=== PATIENT | female | born 1965 | race Caucasian/White ===

== ENCOUNTER 2020-01-24 10:24 | Outpatient (CLI) | payer OTHER, SELFPAY ==
[2020-01-24 10:37] LABS: Basophils Percent Auto 0.3 % (0.2-1.2); Eosinophils Absolute Auto 0.1 K/mm3 (0-0.3); Eosinophils Percent Auto 1.6 % (0-4.4); Hematocrit 36.8 % (37.0-47.0); Hemoglobin 12.1 g/dL (12.0-15.0); Immature Granulocyte Absolute 0.01 K/mm3 (0.00-0.031); Immature Granulocyte Percent A 0.1 % (0-0.5); Lymphocytes Absolute Auto 1.65 K/mm3 (0.9-3.2); Lymphocytes Percent Auto 24.2 % (18.3-44.2); Mean Corpuscular HGB Conc 32.9 g/dl (32-36); Mean Corpuscular Hemoglobin 29.5 pg (26-34); Mean Corpuscular Volume 89.8 fl (80-100); Mean Platelet Volume 9.5 fl (7.4-10.4); Monocytes Absolute Auto 0.4 K/mm3 (0.1-0.6); Monocytes Percent Auto 6.3 % (2.6-8.5); Neutrophils Absolute Auto 4.6 K/mm3 (1.3-6.7); Neutrophils Percent Auto 67.5 % (45.5-73.1); Platelet Count Result 213 k/mm3 (150-375); Red Cell Distribution Width 12.5 % (11.5-14.5); White Blood Count 6.8 K/mm3 (4.5-10.0)
[2020-01-24 10:48] LABS: Blood Urea Nitrogen 19 mg/dL (8-26); Carbon Dioxide 24 mmol/L (22-30); Chloride 105 mmol/L (98-109); Estimated Glomerular Filt Rate > 60; Glucose 109 mg/dL (70-105); Potassium 3.8 mmol/L (3.5-4.9); Sodium 139 mmol/L (138-146)
[2020-01-24 12:27] LABS: Alanine Aminotransferase 26 U/L (4-35); Albumin Level 4.2 g/dL (3.5-5.1); Alkaline Phosphatase 73 U/L (38-126); Aspartate Amino Transferase 26 U/L (14-36); Bilirubin,Total 0.3 mg/dL (0.2-1.3); Blood Urea Nitrogen 19 mg/dL (7-17); Calcium 9.2 mg/dL (8.4-10.2); Carbon Dioxide 25 mmol/L (22-30); Chloride 105 mmol/L (98-107); Estimated Glomerular Filt Rate > 60; Glucose 104 mg/dL (65-105); Sodium 137 mmol/L (137-145)
[2020-01-26 20:45] LABS: CA 27.29 20 U/mL (<38)
== END 2020-01-24 10:25 | disposition home or self-care (01) ==
LOC: ANHLAB 10:25
PROVIDERS: PCP Family Medicine; Visit Provider Internal Medicine Hematology & Oncology
DX: C50.411 Malignant neoplasm of upper-outer quadrant of right female breast (principal); Z17.0 Estrogen receptor positive status [ER+]
CPT/HCPCS: 36415; 80048; 80053; 85025; 86300

== ENCOUNTER 2020-04-09 13:37 | Outpatient (CLI) | payer OTHER, SELFPAY ==
--- NOTE | 2020-04-09 13:39 | ECG_ITS ---
Measurements Intervals [place] Rate: 65 P: 83 [place]: 190 QRS: 35 QRSD: 109 T: 28 QT: 425 QTc: 444 Interpretive Statements SINUS RHYTHM BORDERLINE R WAVE PROGRESSION, ANTERIOR LEADS BORDERLINE ECG Electronically Signed On 04-09-2020 17:16:25 CDT by Jam Merino D.O.
[2020-04-09 14:08] LABS: Hematocrit 38.1 % (37.0-47.0); Hemoglobin 12.5 g/dL (12.0-15.0)
== END 2020-04-09 13:38 | disposition home or self-care (01) ==
PROVIDERS: Anesthesiology; PCP Family Medicine; Visit Provider Urology
DX: D64.9 Anemia, unspecified (principal); I10 Essential (primary) hypertension; N39.3 Stress incontinence (female) (male)
CPT/HCPCS: 36415; 85014; 85018; 87086; 93005

== ENCOUNTER 2020-05-24 08:19 | Outpatient (CLI) | payer OTHER, SELFPAY | END 2020-05-24 08:20 | disposition home or self-care (01) | LOC: ANHSURGERY 08:20 | PROVIDERS: PCP Family Medicine; Visit Provider Urology | DX: N39.3 Stress incontinence (female) (male) (principal) | CPT/HCPCS: 87086; 87088 ==

== ENCOUNTER 2020-05-30 03:00 | Outpatient (CLI) | payer OTHER, SELFPAY ==
[2020-05-30 18:40] LABS: SARS-CoV-2 RNA PCR Negative
== END 2020-05-30 03:01 | disposition home or self-care (01) ==
LOC: ANHCOVIDDT 03:01
PROVIDERS: PCP Family Medicine; Visit Provider Urology
DX: Z01.812 Encounter for preprocedural laboratory examination (principal); Z20.828 Contact with and (suspected) exposure to other viral communicable diseases
CPT/HCPCS: 87635; C9803; U0003

== ENCOUNTER 2020-06-01 00:39 | Day surgery (SDC) | payer OTHER, SELFPAY ==
[2020-04-09 08:24] VITALS: BMI 39.9
[2020-05-21 11:02] VITALS: BMI 39.9
--- NOTE | 2020-05-27 10:57 | PM.IMHP ---
H&P: HPI History of Present Illness Date/Time: 05/27/20 10:57 Chief complaint: Stress Incontinence Narrative: Mari Lee is a 55 year old female with stress urinary incontinence. She underwent a previous transobturator sling in the summer of 2018. She has recurrent stress incontinence. Review of Systems Review of Systems: All systems reviewed & are unremarkable except as noted in HPI and below PMFSH Past Medical History Medical History (Updated 05/27/20 @ 10:58 by Oskar Pereira MD) BMI 40.0-44.9, adult BP (high blood pressure) Breast cancer, right Stress incontinence Surgical History Surgical History (Updated 08/08/19 @ 11:59 by Jaye Mccloud MD) H/O bladder repair surgery H/O lumpectomy S/P hysterectomy with oophorectomy S/P radiation > 12 weeks Family History Family History (Updated 09/13/15 @ 15:15 by DOCTOR UNKNOWN) Mother Hypertension Family history of pancreatic cancer Patient's mother is Father Hypertension Social History Social History (Updated 10/24/19 @ 15:44 by Katie West) Social History: Years smoked: 35 Smoking status: Current every day smoker Tobacco type: cigarettes Second hand tobacco smoke exposure: Yes Smoking end date: 09/07/14 Additional smoking assessment comments: 20 YEARS AGO SMOKED 3-4 PACKS PER WEEK, NOW ONLY 1 CIGARETTE PER DAY Alcohol intake: current Drinks per week: 4 Substance use: never Substance use type: does not use Gender identity (if verbalized by the patient): Female Spiritual care concerns: No Meds Home Medications and Allergies Home Medications Medication Instructions Recorded Confirmed Type loratadine 10 mg tablet 10 mg PO DAILY 08/08/19 05/21/20 History neyzd-5u-uje-epa-fish oil 120 1 cap PO DAILY 08/08/19 05/21/20 History mg-180 mg-60 mg-1,200 mg capsuleDR ranitidine HCl 75 mg tablet 75 mg PO EVERY OTHER DAY 08/08/19 05/21/20 History tizanidine 2 mg capsule 2 mg PO TID PRN 08/08/19 05/21/20 History atenolol 50 mg tablet 50 mg PO DAILY #90 tablet 11/23/19 05/21/20 Rx anastrozole 1 mg PO DAILY 04/09/20 05/21/20 History ferrous sulfate [iron] 325 mg PO DAILY 04/09/20 05/21/20 History glycopyrrolate-formoterol [Bevespi 2 puff INHALATION BID PRN 04/09/20 05/21/20 History Aerosphere] multivitamin 1 tablet PO DAILY 04/09/20 05/21/20 History montelukast 10 mg tablet 10 mg PO DAILY #30 tablet 05/21/20 Rx Allergies Allergy/AdvReac Type Severity Reaction Status Date / Time levofloxacin Allergy Unknown hives Verified 05/21/20 11:03 Exam Const: General: no acute distress HENMT: Mouth: Yes moist mucous membranes Eyes: General: appearance normal, both eyes and all related structures Neck: Neck: supple Resp: Effort & Inspection: normal respiratory effort GI: GI Palp: Yes Soft to palpation Skin: General skin exam: normal color Neuro: Cognition (Neuro): normal cognition Extrem: General: normal to inspection Psych: Mental Status: mental status grossly normal Assessment and Plan Assessment and plan (1) RICK (stress urinary incontinence, female): Code(s): N39.3 - Stress incontinence (female) (male) Status: Acute Assessment and Plan: repeat mid urethral sling. Will likely do a retropubic approach. We discussed risks, benefits, alternatives. Discussed potentially lower success rate.
[2020-06-01] VITALS (7 sets, daily range): BP systolic 112–135; BP diastolic 73–82; PULSE 68–83; RESP 10–16; TEMP 36.1–36.4; O2SAT 95–100
--- NOTE | 2020-06-01 07:18 | WPDHPUPDATE1 ---
History and Physical Update Update Date/Time: 06/01/20 07:18 History and Physical has been reviewed, including an updated exam of the patient. There are NO changes in the patient's condition. Risks, benefits, and alternatives have been discussed and questions answered. Patient agrees to proceed with procedure.
[2020-06-01] MEDS: LACTATED RINGERS 1,000 ML 30 ML IV CONT ×2 (08:05→10:55)
--- NOTE | 2020-06-01 08:22 | WPDANESEPPF ---
Anes - Initial Pre Proc Eval Procedure: Operation Date: 06/01/20 09:45 Proposed Procedures p Urethral Sling - Oskar Pereira MD Date/Time: 06/01/20 08:22 Surgeon: Oskar Pereira MD Pre Op Diagnosis: Stress Incontinence Patient Data Age: 55 Gender: F Height: 5 ft 5 in Weight: 109.4 kg Allergies Allergy/AdvReac Type Severity Reaction Status Date / Time levofloxacin Allergy Unknown hives Verified 06/01/20 07:58 Home Medications Medication Instructions Recorded Confirmed Type loratadine 10 mg tablet 10 mg PO DAILY 08/08/19 06/01/20 History xopat-6s-pio-epa-fish oil 120 1 cap PO DAILY 08/08/19 06/01/20 History mg-180 mg-60 mg-1,200 mg capsule, DR ranitidine HCl 75 mg tablet 75 mg PO EVERY OTHER DAY 08/08/19 06/01/20 History tizanidine 2 mg capsule 2 mg PO TID PRN 08/08/19 06/01/20 History atenolol 50 mg tablet 50 mg PO DAILY #90 tablet 11/23/19 06/01/20 Rx anastrozole 1 mg PO DAILY 04/09/20 06/01/20 History ferrous sulfate [iron] 325 mg PO DAILY 04/09/20 06/01/20 History glycopyrrolate-formoterol [Bevespi 2 puff INHALATION BID PRN 04/09/20 06/01/20 History Aerosphere] multivitamin 1 tablet PO DAILY 04/09/20 06/01/20 History montelukast 10 mg tablet 10 mg PO DAILY #30 tablet 05/21/20 06/01/20 Rx Patient hx anesthesia problems: none Family hx anesthesia problems: none PMFSH Past Medical History Medical History BMI 40.0-44.9, adult BP (high blood pressure) Breast cancer, right Stress incontinence Surgical History Surgical History H/O bladder repair surgery H/O lumpectomy S/P hysterectomy with oophorectomy S/P radiation > 12 weeks Family History Family History Mother Hypertension Family history of pancreatic cancer Patient's mother is Father Hypertension Social History Social History Social History: Years smoked: 35 Smoking status: Current every day smoker Tobacco type: cigarettes Second hand tobacco smoke exposure: Yes Smoking end date: 09/07/14 Additional smoking assessment comments: 20 YEARS AGO SMOKED 3-4 PACKS PER WEEK, NOW ONLY 1 CIGARETTE PER DAY Alcohol intake: current Drinks per week: 4 Substance use: never Substance use type: does not use Gender identity (if verbalized by the patient): Female Spiritual care concerns: No Anes - Eval Final PreProcedure Day of Procedure 06/01/20 08:22 Patient weight: morbidly obese Heart: regular rate and rhythm Lungs: clear to auscultation Airway: Mallampati scale class II Neurological: alert and oriented Last oral intake: >/= 8 hours ASA classification: III Emergent: no Anesthetic plan: proceed Anesthesia type and monitoring: general GIVS and standard monitoring Informed Consent: The patient's anesthetic plan and its attendant risks and benefits were discussed with the patient/family/POA. Questions were solicited and answers provided to the satisfaction of the patient/family/POA.
[2020-06-01] MEDS: ceFAZolin 2 GM/D5W 50 ML 2 GM/50 ML BAG IVPB (09:17)
[2020-06-01] MEDS: BUPIVACAINE/EPINEPHRINE 0.25% 50 ML VIAL INFILTRATE (09:32)
--- NOTE | 2020-06-01 09:58 | PM.PROC ---
Procedure Note - Detailed Date of procedure: 06/01/20 Pre-op diagnosis: Stress Incontinence Stress urinary incontinence Post-op diagnosis: same Procedure performed: Transobturator Mid-urethral sling Cystoscopy Description of procedure: This is a patient with confirmed stress urinary incontinence. She desires correction. She understands the risks of bleeding, infection, damage to the urinary tract, lack of cure of stress incontinence, recurrence of stress incontinence, postoperative voiding dysfunction including incontinence and retention, need for ancillary procedures to loosen remove the sling, postoperative voiding dysfunction including retention and overactive bladder, hip and leg pain, dyspareunia, mesh related complications including exposure and extrusion. She agrees to proceed. She understands it will not help overactive bladder symptoms if present. She was correctly identified and informed consent obtained. She is brought to the operating room. She was given appropriate anesthesia. She was placed in the dorsal lithotomy position. All pressure points were padded. She was given appropriate perioperative antibiotics and a time-out performed. A Servin catheter is placed. I marked out the thigh incisions anesthetize the skin and made those incisions. I anesthetized the anterior vaginal wall over the mid urethra. I made a 1 cm incision. I dissected out laterally taking great care not to injure the urethra or the vaginal wall. Passed the helical trocars 1st on the left and then on the right from the thigh incision towards the vaginal incision. Sling was connected to the trocars and brought out through the thigh incision. I tensioned the sling appropriately. I cut and removed the plastic sheaths. I closed the incision with 2 0 Vicryl. I then performed cystoscopy. There was no surgical artifact or abnormalities inside the bladder. The urethra was normal without surgical artifact. I cut the excess sling material. I closed the incisions with glue. She was awakened and transferred to the PACU in stable condition. Implants: Mid urethral sling Surgeon: Oskar Pereira MD Drains: No Packing: No Pathology: none sent Complications: No immediate complications Condition: stable Disposition: PACU
[2020-06-01] MEDS: oxyCODONE HCL (*CRX) 5 MG TAB IR PO (11:16)
== END 2020-06-01 11:27 | disposition home or self-care (01) ==
PROVIDERS: PCP Family Medicine; Visit Provider Urology
PROC: (CPT 57288; principal; 2020-06-01 09:45)
DX: N39.3 Stress incontinence (female) (male) (principal); I10 Essential (primary) hypertension; Z85.3 Personal history of malignant neoplasm of breast; Z92.3 Personal history of irradiation; F17.210 Nicotine dependence, cigarettes, uncomplicated; Z79.811 Long term (current) use of aromatase inhibitors; E66.01 Morbid (severe) obesity due to excess calories; Z68.41 Body mass index [BMI] 40.0-44.9, adult
CPT/HCPCS: 57288; A9270; C1771; J0690; J1100; J2250; J2405; J2704; J3010; J7030; J7120

== ENCOUNTER 2020-06-25 15:30 | Outpatient (CLI) | payer OTHER, SELFPAY ==
--- NOTE | ~2020-06-25 | MM_ITS ---
EXAMINATION: MM screening jamie BI w allyn HISTORY: Screening mammogram TECHNIQUE: Craniocaudal and mediolateral oblique 3-D tomosynthesis images were obtained and synthetic 2-D images were generated. CAD analysis was submitted and interpreted. COMPARISON: 06/23/2019 bilateral diagnostic digital mammogram and limited left breast ultrasound 12/17/2018 diagnostic right digital mammogram 06/28/2018 left digital screening mammogram 04/13/2018 right digital screening mammogram 07/15/2017 right complete breast ultrasound and right breast ultrasound-guided biopsy 06/24/2017 bilateral digital mammogram and Limited bilateral breast ultrasound BREAST PARENCHYMAL COMPOSITION: There are scattered areas of fibroglandular density. FINDINGS: There is stable postoperative scarring and retraction in the upper outer quadrant of the ri ght breast. There is no evidence of suspicious mass, calcification, or new architectural distortion t o suggest malignancy in either breast. There has been no suspicious interval change. IMPRESSION: 1. No mammographic evidence of malignancy. 2. Recommend routine screening mammography in one year. BI-RADS Category 2: Benign finding(s). Reviewed, dictated and finalized at location A.
== END 2020-06-25 15:31 | disposition home or self-care (01) ==
LOC: ANHIMG 15:32
PROVIDERS: PCP Family Medicine; Visit Provider Internal Medicine Hematology & Oncology
DX: Z12.31 Encounter for screening mammogram for malignant neoplasm of breast (principal)
CPT/HCPCS: 77063; 77067

== ENCOUNTER 2020-07-17 14:38 | Outpatient (CLI) | payer OTHER, SELFPAY ==
[2020-07-17 15:18] LABS: Basophils Percent Auto 0.3 % (0.2-1.2); Eosinophils Absolute Auto 0.1 K/mm3 (0-0.3); Eosinophils Percent Auto 1.6 % (0-4.4); Hematocrit 36.5 % (37.0-47.0); Hemoglobin 12.2 g/dL (12.0-15.0); Immature Granulocyte Absolute 0.02 K/mm3 (0.00-0.031); Immature Granulocyte Percent A 0.3 % (0-0.5); Lymphocytes Absolute Auto 2.04 K/mm3 (0.9-3.2); Lymphocytes Percent Auto 29.8 % (18.3-44.2); Mean Corpuscular HGB Conc 33.4 g/dl (32-36); Mean Corpuscular Hemoglobin 29.8 pg (26-34); Mean Platelet Volume 9.5 fl (7.4-10.4); Monocytes Absolute Auto 0.6 K/mm3 (0.1-0.6); Monocytes Percent Auto 8.6 % (2.6-8.5); Neutrophils Absolute Auto 4.1 K/mm3 (1.3-6.7); Neutrophils Percent Auto 59.4 % (45.5-73.1); Platelet Count Result 220 k/mm3 (150-375); Red Cell Distribution Width 12.4 % (11.5-14.5); White Blood Count 6.8 K/mm3 (4.5-10.0)
[2020-07-17 16:48] LABS: Alanine Aminotransferase 33 U/L (4-35); Albumin Level 4.2 g/dL (3.5-5.1); Alkaline Phosphatase 79 U/L (38-126); Anion Gap 9 mmol/L (8-16); Aspartate Amino Transferase 31 U/L (14-36); Bilirubin,Total 0.5 mg/dL (0.2-1.3); Blood Urea Nitrogen 22 mg/dL (7-17); Calcium 9.4 mg/dL (8.4-10.2); Carbon Dioxide 26 mmol/L (22-30); Chloride 104 mmol/L (98-107); Estimated Glomerular Filt Rate > 60; Glucose 114 mg/dL (65-105); Potassium 4.1 mmol/L (3.4-5.0); Sodium 139 mmol/L (137-145)
[2020-07-20 05:14] LABS: CA 27.29 16 U/mL (<38)
== END 2020-07-17 14:39 | disposition home or self-care (01) ==
PROVIDERS: PCP Family Medicine; Visit Provider Internal Medicine Hematology & Oncology
DX: C50.411 Malignant neoplasm of upper-outer quadrant of right female breast (principal); Z17.0 Estrogen receptor positive status [ER+]
CPT/HCPCS: 36415; 80053; 85025; 86300

== ENCOUNTER 2020-08-21 02:34 | Outpatient (CLI) | payer OTHER, SELFPAY ==
[2020-08-21 22:42] LABS: SARS-CoV-2 RNA PCR Negative
== END 2020-08-21 02:35 | disposition home or self-care (01) ==
LOC: ANHCOVIDDT 02:34
PROVIDERS: Urology; PCP Family Medicine; Visit Provider Internal Medicine Gastroenterology
DX: Z01.818 Encounter for other preprocedural examination (principal); Z20.828 Contact with and (suspected) exposure to other viral communicable diseases
CPT/HCPCS: 87635; C9803; U0003

== ENCOUNTER 2020-08-24 00:57 | Day surgery (SDC) | payer OTHER, SELFPAY ==
[2020-08-20 09:53] VITALS: BMI 39.9
[2020-08-24 08:25] VITALS: BP 125/77; PULSE 75; RESP 12; TEMP 36; O2SAT 98; BMI 39.5
[2020-08-24] MEDS: LACTATED RINGERS 1,000 ML 150 ML IV CONT (08:44)
--- NOTE | 2020-08-24 09:07 | WPDGICN ---
Assessment and Plan Assessment and plan (1) Encounter for screening colonoscopy: Code(s): Z12.11 - Encounter for screening for malignant neoplasm of colon Status: Acute Assessment and Plan: Patient presents for screening colonoscopy. She does report that her father had colon polyps. She has a distant history of breast cancer. Plan is for colonoscopy now further recommendations will be given after endoscopy. GI Consult Note Consult date/time: 08/24/20 09:07 HPI: Mari Lee is a 55 year old female Presents for screening colonoscopy. Patient has a family history that her father has had colon polyps. Patient herself has been treated for breast cancer. She states her current weight appetite bowel movements are normal. She denies abdominal pain. She has had no bleeding. Family history is significant her father had colon polyps. Review of Systems Review of Systems: All systems reviewed & are unremarkable except as noted in HPI and below PMFSH Past Medical History Medical History (Updated 08/24/20 @ 09:08 by Lux Chiu MD) BMI 40.0-44.9, adult BP (high blood pressure) Breast cancer, right Stress incontinence Surgical History Surgical History H/O bladder repair surgery H/O lumpectomy S/P hysterectomy with oophorectomy S/P radiation > 12 weeks Family History Family History Mother Hypertension Family history of pancreatic cancer Patient's mother is Father Hypertension Social History Social History Social History: Smoking packs per day: 0 Smoking cigarettes per day: 0.0 Years smoked: 30 Smoking pack-years: 0.00 Smoking status: Current every day smoker Tobacco type: cigarettes Second hand tobacco smoke exposure: Yes Smoking end date: 09/07/14 Additional smoking assessment comments: 20 YEARS AGO SMOKED 3-4 PACKS PER WEEK, NOW ONLY 1 CIGARETTE PER DAY Alcohol intake: current Drinks per week: 4 Substance use: never Substance use type: does not use Living arrangements: with family Gender identity (if verbalized by the patient): Female Spiritual care concerns: No Meds Home Medications and Allergies Home Medications Medication Instructions Recorded Confirmed Type loratadine 10 mg tablet 10 mg PO DAILY 08/08/19 08/24/20 History kpchm-0p-lpj-epa-fish oil 120 1 cap PO DAILY 08/08/19 08/24/20 History mg-180 mg-60 mg-1,200 mg capsuleDR tizanidine 2 mg capsule 2 mg PO TID PRN 08/08/19 08/24/20 History atenolol 50 mg tablet 50 mg PO DAILY #90 tablet 11/23/19 08/24/20 Rx Bevespi Aerosphere 2 puff INHALATION BID PRN 04/09/20 08/20/20 History anastrozole 1 mg PO DAILY 04/09/20 08/24/20 History ferrous sulfate [iron] 325 mg PO DAILY 04/09/20 08/24/20 History multivitamin 1 tablet PO DAILY 04/09/20 08/24/20 History tramadol 50 mg PO Q6H PRN #20 tablet 06/01/20 08/20/20 Rx montelukast 10 mg tablet 10 mg PO DAILY #30 tablet 08/20/20 08/24/20 Rx Allergies Allergy/AdvReac Type Severity Reaction Status Date / Time levofloxacin Allergy Unknown hives Verified 08/24/20 08:24 Vital Signs Vital Signs - 24 hr 08/24/20 08:25 Temperature 96.8 F L Pulse Rate 75 Respiratory Rate 12 Blood Pressure 125/77 Pulse Oximetry 98 Exam Narrative: Exam Narrative: Physical exam reveals Vital Signs to be stable. HEENT exam unremarkable. Lungs are clear to auscultation and percussion. Heart is without murmur or extra sounds. Abdominal exam bowel sounds are present soft nontender with no organomegaly. Digital external rectal exam is normal.
--- NOTE | 2020-08-24 09:14 | WPDANESEPPF ---
Anes - Initial Pre Proc Eval Procedure: Operation Date: 08/24/20 09:30 Proposed Procedures p Screening Colonoscopy - Lux Chiu MD Date/Time: 08/24/20 09:14 Surgeon: Lux Chiu MD Pre Op Diagnosis: Neoplasm Screening Patient Data Age: 55 Gender: F Height: 5 ft 5 in Weight: 107.8 kg Last Vital Signs Temp 36.0 C L 08/24/20 08:25 Pulse 75 08/24/20 08:25 Resp 12 08/24/20 08:25 BP 125/77 08/24/20 08:25 Pulse Ox 98 08/24/20 08:25 Allergies Allergy/AdvReac Type Severity Reaction Status Date / Time levofloxacin Allergy Unknown hives Verified 08/24/20 08:24 Home Medications Medication Instructions Recorded Confirmed Type loratadine 10 mg tablet 10 mg PO DAILY 08/08/19 08/24/20 History qjsnx-4k-dgl-epa-fish oil 120 1 cap PO DAILY 08/08/19 08/24/20 History mg-180 mg-60 mg-1,200 mg capsuleDR tizanidine 2 mg capsule 2 mg PO TID PRN 08/08/19 08/24/20 History atenolol 50 mg tablet 50 mg PO DAILY #90 tablet 11/23/19 08/24/20 Rx Bevespi Aerosphere 2 puff INHALATION BID PRN 04/09/20 08/20/20 History anastrozole 1 mg PO DAILY 04/09/20 08/24/20 History ferrous sulfate [iron] 325 mg PO DAILY 04/09/20 08/24/20 History multivitamin 1 tablet PO DAILY 04/09/20 08/24/20 History tramadol 50 mg PO Q6H PRN #20 tablet 06/01/20 08/20/20 Rx montelukast 10 mg tablet 10 mg PO DAILY #30 tablet 08/20/20 08/24/20 Rx Patient hx anesthesia problems: none Family hx anesthesia problems: none PMFSH Past Medical History Medical History BMI 40.0-44.9, adult BP (high blood pressure) Breast cancer, right Stress incontinence Surgical History Surgical History H/O bladder repair surgery H/O lumpectomy S/P hysterectomy with oophorectomy S/P radiation > 12 weeks Family History Family History Mother Hypertension Family history of pancreatic cancer Patient's mother is Father Hypertension Social History Social History Social History: Smoking packs per day: 0 Smoking cigarettes per day: 0.0 Years smoked: 30 Smoking pack-years: 0.00 Smoking status: Current every day smoker Tobacco type: cigarettes Second hand tobacco smoke exposure: Yes Smoking end date: 09/07/14 Additional smoking assessment comments: 20 YEARS AGO SMOKED 3-4 PACKS PER WEEK, NOW ONLY 1 CIGARETTE PER DAY Alcohol intake: current Drinks per week: 4 Substance use: never Substance use type: does not use Living arrangements: with family Gender identity (if verbalized by the patient): Female Spiritual care concerns: No Anes - Eval Final PreProcedure Day of Procedure 08/24/20 09:14 Patient weight: obese Heart: regular rate and rhythm Lungs: clear to auscultation Airway: Mallampati scale class II Neurological: alert and oriented Last oral intake: >/= 8 hours ASA classification: III Emergent: no Anesthetic plan: proceed Anesthesia type and monitoring: general GIVS and standard monitoring Informed Consent: The patient's anesthetic plan and its attendant risks and benefits were discussed with the patient/family/POA. Questions were solicited and answers provided to the satisfaction of the patient/family/POA.
[2020-08-24 10:02] VITALS: BP 107/69; PULSE 70; RESP 19; O2SAT 100
[2020-08-24 10:12] VITALS: BP 108/65; PULSE 66; RESP 21; O2SAT 100
[2020-08-24 10:22] VITALS: BP 113/79; PULSE 66; RESP 15; O2SAT 99
== END 2020-08-24 10:33 | disposition home or self-care (01) ==
PROVIDERS: PCP Family Medicine; Visit Provider Internal Medicine Gastroenterology
PROC: 0DJD8ZZ Inspection of Lower Intestinal Tract, Via Natural or Artificial Opening Endoscopic (ICD-10-PCS; CPT 45378; principal; 2020-08-24 09:30)
DX: Z12.11 Encounter for screening for malignant neoplasm of colon (principal); Z85.3 Personal history of malignant neoplasm of breast; N39.3 Stress incontinence (female) (male); R03.0 Elevated blood-pressure reading, without diagnosis of hypertension; F17.210 Nicotine dependence, cigarettes, uncomplicated; Z83.71 Family history of colonic polyps; K64.8 Other hemorrhoids
CPT/HCPCS: 45378; J2704; J7120

== ENCOUNTER 2020-11-12 09:49 | Outpatient (CLI) | payer OTHER, SELFPAY | END 2020-11-12 09:50 | disposition home or self-care (01) | LOC: ANHCOVIDVC 09:49 | PROVIDERS: PCP Family Medicine | DX: Z23 Encounter for immunization (principal) | CPT/HCPCS: 0001A; 91300 ==

== ENCOUNTER 2020-12-03 09:44 | Outpatient (CLI) | payer OTHER, SELFPAY | END 2020-12-03 09:45 | disposition home or self-care (01) | LOC: ANHCOVIDVC 09:44 | PROVIDERS: PCP Family Medicine | DX: Z23 Encounter for immunization (principal) | CPT/HCPCS: 0002A; 91300 ==

== ENCOUNTER 2021-01-21 15:53 | Outpatient (CLI) | payer OTHER, SELFPAY ==
[2021-01-21 16:14] LABS: Basophils Percent Auto 0.5 % (0.2-1.2); Eosinophils Absolute Auto 0.2 K/mm3 (0-0.3); Eosinophils Percent Auto 3.6 % (0-4.4); Hematocrit 37.4 % (37.0-47.0); Hemoglobin 12.3 g/dL (12.0-15.0); Immature Granulocyte Absolute 0.01 K/mm3 (0.00-0.031); Immature Granulocyte Percent A 0.2 % (0-0.5); Lymphocytes Absolute Auto 2.08 K/mm3 (0.9-3.2); Lymphocytes Percent Auto 32.3 % (18.3-44.2); Mean Corpuscular HGB Conc 32.9 g/dl (32-36); Mean Corpuscular Hemoglobin 29.9 pg (26-34); Mean Corpuscular Volume 90.8 fl (80-100); Mean Platelet Volume 9.5 fl (7.4-10.4); Monocytes Absolute Auto 0.6 K/mm3 (0.1-0.6); Neutrophils Absolute Auto 3.5 K/mm3 (1.3-6.7); Neutrophils Percent Auto 54.4 % (45.5-73.1); Platelet Count Result 221 k/mm3 (150-375); Red Blood Count 4.12 M/mm3 (4.2-5.4); Red Cell Distribution Width 12.9 % (11.5-14.5); White Blood Count 6.4 K/mm3 (4.5-10.0)
[2021-01-21 17:36] LABS: Alanine Aminotransferase 28 U/L (4-35); Albumin Level 4.1 g/dL (3.5-5.1); Alkaline Phosphatase 76 U/L (38-126); Anion Gap 7 mmol/L (8-16); Aspartate Amino Transferase 25 U/L (14-36); Bilirubin,Total 0.2 mg/dL (0.2-1.3); Blood Urea Nitrogen 21 mg/dL (7-17); Calcium 9.5 mg/dL (8.4-10.2); Carbon Dioxide 29 mmol/L (22-30); Chloride 106 mmol/L (98-107); Estimated Glomerular Filt Rate > 60; Glucose 123 mg/dL (65-105); Potassium 4.3 mmol/L (3.4-5.0); Sodium 142 mmol/L (137-145)
[2021-01-21 18:49] LABS: Vitamin D 25 Hydroxy 31.8 ng/mL
== END 2021-01-21 15:54 | disposition home or self-care (01) ==
LOC: ANHLAB 15:58
PROVIDERS: PCP Family Medicine; Visit Provider Internal Medicine Hematology & Oncology
DX: C50.411 Malignant neoplasm of upper-outer quadrant of right female breast (principal); Z17.0 Estrogen receptor positive status [ER+]; R63.5 Abnormal weight gain; D64.9 Anemia, unspecified; Z79.811 Long term (current) use of aromatase inhibitors
CPT/HCPCS: 36415; 80053; 82306; 82607; 84443; 85025

== ENCOUNTER 2021-03-22 10:08 | Outpatient (CLI) | payer OTHER, SELFPAY ==
--- NOTE | 2021-03-25 09:03 | WPDPFTINT ---
PFT Procedure Performed PFT Procedure Performed Spirometry with Pre/Post Bronchodilator Plethysmography (Lung Vol) Diffusing Cap (DLCO) Flow Vol Loop PFT Interpretation This is a pulmonary function test with pre and post-bronchodilator spirometry, plethysmography and diffusing capacity. The test was performed and results interpreted in accordance with the 2019 and 2005 ATS/ERS Task Force guidelines respectively using the Global Lung Function Initiative-2012 reference equations. Patient demonstrated good effort and cooperation. Reproducibility criteria were met. The quality of the pre bronchodilator spirometry maneuver was Grade A and post bronchodilator spirometry maneuver was Grade A. Findings: Spirometry: The contour of the inspiratory and expiratory flow tracing are normal. The pre bronchodilator FVC is 3.48 L, 100% predicted. The pre bronchodilator FEV1 is 2.47 L, 89% predicted. The FEV1: FVC ratio 71%. The post bronchodilator FVC is 3.63 L, representing a 4% increase. The post bronchodilator FEV1 is 2.62 L, representing a 6% increase. Plethysmography: The total lung capacity is 4.93 L, 95% predicted. The functional residual capacity is 1.46 L, 50% predicted. The residual volume is 1.30 L, 69% predicted. Diffusing capacity: The absolute diffusion capacity is 18.2, 80% predicted. The diffusing capacity corrected for alveolar volume is 3.97, 88% predicted. Impression: The spirometry is normal without evidence of an obstructive abnormality. There is no significant improvement after inhaling a single dose of albuterol. There is reduction in the functional residual capacity with a normal total lung capacity. This is an abnormal but nonspecific lung volume pattern. The diffusing capacity is normal. There are no prior studies for comparison
== END 2021-03-22 10:09 | disposition home or self-care (01) ==
LOC: ANHPFT 10:10
PROVIDERS: PCP Family Medicine; Visit Provider Family Medicine
DX: R06.02 Shortness of breath (principal); Z87.891 Personal history of nicotine dependence
CPT/HCPCS: 94060; 94726; 94729

== ENCOUNTER 2021-07-02 15:07 | Outpatient (CLI) | payer OTHER, SELFPAY ==
--- NOTE | ~2021-07-02 | MM_ITS ---
EXAMINATION: MM screening jamie BI w allyn HISTORY: Screening mammogram TECHNIQUE: Craniocaudal and mediolateral oblique 3-D tomosynthesis images were obtained and synthetic 2-D images were generated. Bilateral rotated lateral cc views. CAD analysis was submitted and interp reted. COMPARISON: 06/25/2020 bilateral screening mammogram 06/23/2019 bilateral diagnostic mammogram and limited left breast ultrasound 12/17/2018 diagnostic right mammogram 06/28/2018 left screening mammogram 04/13/2018 right screening mammogram BREAST PARENCHYMAL COMPOSITION: There are scattered areas of fibroglandular density. FINDINGS: Stable scarring and architectural distortion and retraction in the upper outer right breast ; history of right partial mastectomy and radiotherapy for breast cancer. There is no evidence of interval suspicious mass, calcification, or architectural distortion to sugge st malignancy in either breast. There has been no suspicious interval change. IMPRESSION: 1. Status post right partial mastectomy and radiotherapy for breast cancer No mammographic evidence o f malignancy. 2. Recommend routine screening mammography in one year. BI-RADS Category 2: Benign finding(s). Reviewed, dictated and finalized at location A. IMPRESSION: 1. Status post right partial mastectomy and radiotherapy for breast cancer No m ammographic evidence of malignancy. 2. Recommend routine screening mammography in one year. BI-RADS Category 2: Benign finding(s).
== END 2021-07-02 15:08 | disposition home or self-care (01) ==
LOC: ANHIMG 15:11
PROVIDERS: PCP Family Medicine; Visit Provider Internal Medicine Hematology & Oncology
DX: Z12.31 Encounter for screening mammogram for malignant neoplasm of breast (principal)
CPT/HCPCS: 77063; 77067

== ENCOUNTER 2021-07-17 15:43 | Outpatient (CLI) | payer OTHER, SELFPAY ==
[2021-07-17 16:24] LABS: Basophils Percent Auto 0.3 % (0.2-1.2); Eosinophils Absolute Auto 0.1 K/mm3 (0-0.3); Eosinophils Percent Auto 1.6 % (0-4.4); Hematocrit 37.8 % (37.0-47.0); Hemoglobin 12.4 g/dL (12.0-15.0); Immature Granulocyte Absolute 0.02 K/mm3 (0.00-0.031); Immature Granulocyte Percent A 0.3 % (0-0.5); Lymphocytes Absolute Auto 1.65 K/mm3 (0.9-3.2); Lymphocytes Percent Auto 23.5 % (18.3-44.2); Mean Corpuscular HGB Conc 32.8 g/dl (32-36); Mean Corpuscular Hemoglobin 29.7 pg (26-34); Mean Corpuscular Volume 90.6 fl (80-100); Mean Platelet Volume 9.5 fl (7.4-10.4); Monocytes Absolute Auto 0.6 K/mm3 (0.1-0.6); Neutrophils Absolute Auto 4.7 K/mm3 (1.3-6.7); Neutrophils Percent Auto 66.3 % (45.5-73.1); Platelet Count Result 208 k/mm3 (150-375); Red Blood Count 4.17 M/mm3 (4.2-5.4); Red Cell Distribution Width 12.5 % (11.5-14.5)
[2021-07-17 16:51] LABS: Alanine Aminotransferase 31 U/L (4-35); Albumin Level 4.3 g/dL (3.5-5.1); Alkaline Phosphatase 71 U/L (38-126); Anion Gap 6 mmol/L (8-16); Aspartate Amino Transferase 27 U/L (14-36); Bilirubin,Total 0.3 mg/dL (0.2-1.3); Blood Urea Nitrogen 19 mg/dL (7-17); Calcium 9.4 mg/dL (8.4-10.2); Carbon Dioxide 31 mmol/L (22-30); Chloride 104 mmol/L (98-107); Estimated Glomerular Filt Rate > 60; Glucose 121 mg/dL (65-110); Potassium 4.1 mmol/L (3.4-5.0); Sodium 141 mmol/L (137-145)
[2021-07-23 14:41] LABS: CA 15-3 11 U/mL (<32)
== END 2021-07-17 15:44 | disposition home or self-care (01) ==
PROVIDERS: PCP Family Medicine; Visit Provider Internal Medicine Hematology & Oncology
DX: C50.411 Malignant neoplasm of upper-outer quadrant of right female breast (principal); Z17.0 Estrogen receptor positive status [ER+]
CPT/HCPCS: 36415; 80053; 85025; 86300

== ENCOUNTER 2022-01-17 13:40 | Outpatient (CLI) | payer OTHER, SELFPAY ==
[2022-01-17 14:02] LABS: Basophils Percent Auto 0.3 % (0.2-1.2); Eosinophils Absolute Auto 0.1 K/mm3 (0-0.3); Eosinophils Percent Auto 1.4 % (0-4.4); Hematocrit 39.7 % (37.0-47.0); Hemoglobin 12.9 g/dL (12.0-15.0); Immature Granulocyte Absolute 0.01 K/mm3 (0.00-0.031); Immature Granulocyte Percent A 0.2 % (0-0.5); Lymphocytes Absolute Auto 1.68 K/mm3 (0.9-3.2); Lymphocytes Percent Auto 25.3 % (18.3-44.2); Mean Corpuscular HGB Conc 32.5 g/dl (32-36); Mean Corpuscular Hemoglobin 29.6 pg (26-34); Mean Corpuscular Volume 91.1 fl (80-100); Mean Platelet Volume 9.5 fl (7.4-10.4); Monocytes Absolute Auto 0.6 K/mm3 (0.1-0.6); Monocytes Percent Auto 8.9 % (2.6-8.5); Neutrophils Absolute Auto 4.3 K/mm3 (1.3-6.7); Neutrophils Percent Auto 63.9 % (45.5-73.1); Platelet Count Result 215 k/mm3 (150-375); Red Blood Count 4.36 M/mm3 (4.2-5.4); Red Cell Distribution Width 12.5 % (11.5-14.5); White Blood Count 6.6 K/mm3 (4.5-10.0)
[2022-01-17 16:02] LABS: Alanine Aminotransferase 32 U/L (6-35); Albumin Level 4.5 g/dL (3.5-5.1); Alkaline Phosphatase 81 U/L (38-126); Anion Gap 10 mmol/L (8-16); Aspartate Amino Transferase 27 U/L (14-36); Bilirubin,Total 0.3 mg/dL (0.2-1.3); Blood Urea Nitrogen 17 mg/dL (7-17); Calcium 9.3 mg/dL (8.4-10.2); Carbon Dioxide 26 mmol/L (22-30); Chloride 104 mmol/L (98-107); Estimated Glomerular Filt Rate > 60; Glucose 89 mg/dL (65-110); Potassium 4.6 mmol/L (3.4-5.0); Sodium 140 mmol/L (137-145)
[2022-01-22 05:00] LABS: CA 15-3 12 U/mL (<32)
== END 2022-01-17 13:41 | disposition home or self-care (01) ==
PROVIDERS: PCP Family Medicine; Visit Provider Internal Medicine Hematology & Oncology
DX: C50.411 Malignant neoplasm of upper-outer quadrant of right female breast (principal); Z17.0 Estrogen receptor positive status [ER+]
CPT/HCPCS: 36415; 80053; 85025; 86300

== ENCOUNTER 2022-07-22 15:33 | Outpatient (CLI) | payer OTHER, SELFPAY ==
[2022-07-22 15:49] LABS: Basophils Percent Auto 0.2 % (0.2-1.2); Eosinophils Absolute Auto 0.1 K/mm3 (0-0.3); Hematocrit 38.6 % (37.0-47.0); Hemoglobin 12.6 g/dL (12.0-15.0); Immature Granulocyte Absolute 0.01 K/mm3 (0.00-0.031); Immature Granulocyte Percent A 0.2 % (0-0.5); Lymphocytes Absolute Auto 1.79 K/mm3 (0.9-3.2); Lymphocytes Percent Auto 27.1 % (18.3-44.2); Mean Corpuscular HGB Conc 32.6 g/dl (32-36); Mean Corpuscular Hemoglobin 29.8 pg (26-34); Mean Corpuscular Volume 91.3 fl (80-100); Mean Platelet Volume 9.3 fl (7.4-10.4); Monocytes Absolute Auto 0.5 K/mm3 (0.1-0.6); Monocytes Percent Auto 7.9 % (2.6-8.5); Neutrophils Absolute Auto 4.1 K/mm3 (1.3-6.7); Neutrophils Percent Auto 62.6 % (45.5-73.1); Platelet Count Result 207 k/mm3 (150-375); Red Blood Count 4.23 M/mm3 (4.2-5.4); Red Cell Distribution Width 12.7 % (11.5-14.5); White Blood Count 6.6 K/mm3 (4.5-10.0)
[2022-07-22 16:29] LABS: Alanine Aminotransferase 40 U/L (6-35); Albumin Level 4.5 g/dL (3.5-5.1); Alkaline Phosphatase 84 U/L (38-126); Anion Gap 13 mmol/L (8-16); Aspartate Amino Transferase 59 U/L (14-36); Bilirubin,Total 0.6 mg/dL (0.2-1.3); Blood Urea Nitrogen 21 mg/dL (7-17); Calcium 9.1 mg/dL (8.4-10.2); Carbon Dioxide 29 mmol/L (22-30); Chloride 98 mmol/L (98-107); Estimated Glomerular Filt Rate > 60; Glucose 140 mg/dL (65-110); Potassium 3.6 mmol/L (3.4-5.0); Sodium 140 mmol/L (137-145)
[2022-07-27 18:11] LABS: CA 15-3 12 U/mL (<32)
== END 2022-07-22 15:34 | disposition home or self-care (01) ==
PROVIDERS: PCP Family Medicine; Visit Provider Internal Medicine Hematology & Oncology
DX: C50.411 Malignant neoplasm of upper-outer quadrant of right female breast (principal); Z17.0 Estrogen receptor positive status [ER+]
CPT/HCPCS: 36415; 80053; 85025; 86300

== ENCOUNTER 2022-08-15 11:46 | Outpatient (CLI) | payer OTHER, SELFPAY ==
--- NOTE | ~2022-08-15 | DEXA_ITS ---
Bone Density Report Name: HUY LONDON Age: 57 Sex: Female Ethnicity: White Date of : 1965 Indication: postmenopausal; screening for osteoporosis; height loss; cancer; asthma or emphysema; hysterectomy; Referring Provider: HIRA ALCANTARA Study: Bone densitometry was performed. Exam Date: August 15, 2022 Accession number: [id number] Bone Density: Region BMD T-score Z-score Classification AP Spine(L1-L4) 0.988 -0.5 0.6 Normal Femoral Neck (Left) 0.824 -0.2 0.8 Normal Total Hip (Left) 1.071 1.1 1.7 Normal Femoral Neck (Right) 0.910 0.5 1.6 Normal Total Hip (Right) 1.132 1.6 2.3 Normal Total Hip Mean 1.102 1.4 2.0 Normal World Health Organization criteria for BMD impression classify patients as: Normal (T-score at or above -1.0), Osteopenia (T-score between -1.0 and -2.5), or Osteoporosis (T-score at or below -2.5). 10-year Fracture Risk: FRAX not reported because: All T-scores for Spine Total, Hip Total, Femoral Neck at or above -1.0 Clinical Information Provided by Patient: Smokes Has the following medical conditions: Asthma or Emphysema, Cancer, Hysterectomy, Breast Cancer 2016 Patient maximum height was 66 Menopause Age: 52 Drinks caffeinated beverages Onset of menses at age 12 Number of children 2 Impression: The patient has normal bone mass. The patient has risk factors, including: smoking. Discussion: BONE DENSITY IS ABOVE THE MINIMUM DESIRABLE LEVEL AT ALL SKELETAL SITES TESTED. This patient?s bone mineral density is above the minimum desirable level (T-score -1.0 or better) at all sites measured. The patient should follow a healthful lifestyle (good nutrition with adequate calcium and vitamin D, and appropriate weight-bearing exercise). Follow-Up: Consider repeating this study in 5 years or sooner if there is some new clinical indication. Reported by: [facility] on 08/15/2022 12:25:00 PM. Reviewed, dictated and finalized at location [facility]
== END 2022-08-15 11:47 | disposition home or self-care (01) ==
PROVIDERS: PCP Family Medicine; Visit Provider Internal Medicine Hematology & Oncology
DX: M85.89 Other specified disorders of bone density and structure, multiple sites (principal)
CPT/HCPCS: 77080

== ENCOUNTER 2022-08-23 13:43 | Outpatient (CLI) | payer OTHER, SELFPAY ==
--- NOTE | ~2022-08-23 | MM_ITS ---
EXAMINATION: MM screening [facility] BI w allyn HISTORY: Screening TECHNIQUE: Craniocaudal and mediolateral oblique 3-D tomosynthesis images were obtained and synthetic 2-D images were generated. CAD analysis was submitted and interpreted. COMPARISON: Comparison to multiple prior studies sequentially, with oldest reviewed study dated 03/2020. BREAST PARENCHYMAL COMPOSITION: The breasts are heterogeneously dense, which may obscure small masses . FINDINGS: There is stable architectural distortion in the upper outer quadrant of the right breast fr om previous biopsy. The left breast is unchanged. No new masses, calcifications or architectural dist ortion in either breast to suggest malignancy. IMPRESSION: 1. No mammographic evidence of malignancy. 2. Recommend routine screening mammography in one year. BI-RADS Category 2: Benign finding(s). Reviewed, dictated and finalized at location A. 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
== END 2022-08-23 13:44 | disposition home or self-care (01) ==
PROVIDERS: PCP Family Medicine; Visit Provider Internal Medicine Hematology & Oncology
DX: Z12.31 Encounter for screening mammogram for malignant neoplasm of breast (principal)
CPT/HCPCS: 77063; 77067

== ENCOUNTER 2022-10-16 15:45 | Outpatient (CLI) | payer OTHER, SELFPAY ==
[2022-10-16 15:54] LABS: Basophils Percent Auto 0.3 % (0.2-1.2); Eosinophils Absolute Auto 0.1 K/mm3 (0-0.3); Eosinophils Percent Auto 0.7 % (0-4.4); Hematocrit 38.7 % (37.0-47.0); Hemoglobin 12.6 g/dL (12.0-15.0); Immature Granulocyte Absolute 0.01 K/mm3 (0.00-0.031); Immature Granulocyte Percent A 0.1 % (0-0.5); Lymphocytes Absolute Auto 1.84 K/mm3 (0.9-3.2); Mean Corpuscular HGB Conc 32.6 g/dl (32-36); Mean Corpuscular Hemoglobin 29.6 pg (26-34); Mean Corpuscular Volume 90.8 fl (80-100); Mean Platelet Volume 9.2 fl (7.4-10.4); Monocytes Absolute Auto 0.5 K/mm3 (0.1-0.6); Monocytes Percent Auto 7.6 % (2.6-8.5); Neutrophils Absolute Auto 4.6 K/mm3 (1.3-6.7); Neutrophils Percent Auto 65.3 % (45.5-73.1); Platelet Count Result 208 k/mm3 (150-375); Red Blood Count 4.26 M/mm3 (4.2-5.4); Red Cell Distribution Width 12.3 % (11.5-14.5); White Blood Count 7.1 K/mm3 (4.5-10.0)
[2022-10-16 17:21] LABS: Alanine Aminotransferase 34 U/L (6-35); Albumin Level 4.6 g/dL (3.5-5.1); Alkaline Phosphatase 74 U/L (38-126); Anion Gap 6 mmol/L (8-16); Aspartate Amino Transferase 27 U/L (14-36); Bilirubin,Total 0.4 mg/dL (0.2-1.3); Blood Urea Nitrogen 22 mg/dL (7-17); Calcium 8.8 mg/dL (8.4-10.2); Carbon Dioxide 30 mmol/L (22-30); Chloride 102 mmol/L (98-107); Estimated Glomerular Filt Rate 58; Glucose 129 mg/dL (65-110); Potassium 4.1 mmol/L (3.4-5.0); Sodium 138 mmol/L (137-145)
[2022-10-22 04:35] LABS: CA 15-3 12 U/mL (<32)
== END 2022-10-16 15:46 | disposition home or self-care (01) ==
PROVIDERS: PCP Family Medicine; Visit Provider Internal Medicine Hematology & Oncology
DX: C50.411 Malignant neoplasm of upper-outer quadrant of right female breast (principal); Z17.0 Estrogen receptor positive status [ER+]
CPT/HCPCS: 36415; 80053; 85025; 86300

== ENCOUNTER 2023-04-16 15:05 | Outpatient (CLI) | payer OTHER, SELFPAY ==
[2023-04-16 15:18] LABS: Basophils Percent Auto 0.3 % (0.2-1.2); Eosinophils Absolute Auto 0.1 K/mm3 (0-0.3); Eosinophils Percent Auto 1.3 % (0-4.4); Hematocrit 37.8 % (37.0-47.0); Hemoglobin 12.4 g/dL (12.0-15.0); Immature Granulocyte Absolute 0.02 K/mm3 (0.00-0.031); Immature Granulocyte Percent A 0.3 % (0-0.5); Lymphocytes Absolute Auto 1.86 K/mm3 (0.9-3.2); Lymphocytes Percent Auto 24.6 % (18.3-44.2); Mean Corpuscular HGB Conc 32.8 g/dl (32-36); Mean Corpuscular Hemoglobin 29.7 pg (26-34); Mean Corpuscular Volume 90.6 fl (80-100); Mean Platelet Volume 9.2 fl (7.4-10.4); Monocytes Absolute Auto 0.5 K/mm3 (0.1-0.6); Monocytes Percent Auto 6.6 % (2.6-8.5); Neutrophils Absolute Auto 5.1 K/mm3 (1.3-6.7); Neutrophils Percent Auto 66.9 % (45.5-73.1); Platelet Count Result 209 k/mm3 (150-375); Red Blood Count 4.17 M/mm3 (4.2-5.4); Red Cell Distribution Width 12.7 % (11.5-14.5); White Blood Count 7.6 K/mm3 (4.5-10.0)
[2023-04-16 16:24] LABS: Alanine Aminotransferase 43 U/L (6-35); Albumin Level 4.3 g/dL (3.5-5.1); Alkaline Phosphatase 72 U/L (38-126); Anion Gap 6 mmol/L (8-16); Aspartate Amino Transferase 31 U/L (14-36); Bilirubin,Total 0.4 mg/dL (0.2-1.3); Blood Urea Nitrogen 19 mg/dL (7-17); Carbon Dioxide 27 mmol/L (22-30); Chloride 102 mmol/L (98-107); Estimated Glomerular Filt Rate > 60; Glucose 116 mg/dL (65-110); Potassium 4.1 mmol/L (3.4-5.0); Sodium 135 mmol/L (137-145)
[2023-04-22 04:47] LABS: CA 15-3 14 U/mL (<32)
== END 2023-04-16 15:06 | disposition home or self-care (01) ==
LOC: ANHLAB 15:07
PROVIDERS: PCP Family Medicine; Visit Provider Internal Medicine Hematology & Oncology
DX: C50.411 Malignant neoplasm of upper-outer quadrant of right female breast (principal); Z17.0 Estrogen receptor positive status [ER+]
CPT/HCPCS: 36415; 80053; 85025; 86300

== ENCOUNTER 2023-08-25 14:48 | Outpatient (CLI) | payer OTHER, SELFPAY ==
--- NOTE | ~2023-08-25 | MM_ITS ---
EXAMINATION: MM screening jamie BI w allyn HISTORY: Screening mammogram TECHNIQUE: Craniocaudal and mediolateral oblique 3-D tomosynthesis images were obtained and synthetic 2-D images were generated. Bilateral rotated lateral CC views. CAD analysis was submitted and interp reted. COMPARISON: 08/23/2022, 07/02/2021, 06/25/2020. Bilateral screening mammogram examinations BREAST PARENCHYMAL COMPOSITION: There are scattered areas of fibroglandular density. FINDINGS: There is chronic postsurgical scarring and retraction of the upper outer quadrant of the ri ght breast from partial mastectomy for history of breast cancer. There is no evidence of suspicious m ass, calcification, or architectural distortion to suggest malignancy in either breast. There has bee n no suspicious interval change. IMPRESSION: 1. Status post right partial mastectomy for breast cancer. No mammographic evidence of malignancy. 2. Recommend routine screening mammography in one year. BI-RADS Category 2: Benign finding(s). Reviewed, dictated and finalized at location A. [employer] SAL[employer] REPRESENTATIVE IMPRESSION: 1. Status post right partial mastectomy for breast cancer. No mammographic evid ence of malignancy. 2. Recommend routine screening mammography in one year. BI-RADS Category 2: Benign finding(s).
== END 2023-08-25 14:49 | disposition home or self-care (01) ==
PROVIDERS: PCP Family Medicine; Visit Provider Internal Medicine Hematology & Oncology
DX: Z12.31 Encounter for screening mammogram for malignant neoplasm of breast (principal)
CPT/HCPCS: 77063; 77067

== ENCOUNTER 2023-08-27 07:17 | Outpatient (CLI) | payer OTHER, SELFPAY ==
[2023-08-27 08:16] LABS: Appearance Urine Turbid (Clear); Bacteria Urine 4+ /hpf; Bilirubin Urine Negative (Negative); Blood Urine 3+ (Negative); Color Urine Yellow (Yellow); Glucose Urine UA Negative (Negative); Ketones Urine Negative (Negative); Leukocyte Esterase Ur 3+ LEU/UL (Negative); Nitrate Urine Positive (Negative); Non Pathogenic Casts 0-2; Protein Urine 2+ mg/dL (Negative); RBC Urine 21-50 /hpf (0-2); Specific Grav Ur 1.019 (1.001-1.035); Squamous Epithelial Cell Urine Moderate /hpf (Few); Urobilinogen Urine 0.2 mg/dL (<2.0); WBC Urine >100 /hpf
[2023-08-27 08:23] LABS: Add Urine Microscopic? YES
== END 2023-08-27 07:18 | disposition home or self-care (01) ==
LOC: ANHLAB 07:18
PROVIDERS: PCP Family Medicine; Visit Provider Physician Assistant
DX: R30.0 Dysuria (principal)
CPT/HCPCS: 81001; 87077; 87086; 87186

== ENCOUNTER 2023-09-21 07:31 | Outpatient (CLI) | payer OTHER, SELFPAY ==
[2023-09-21 08:21] LABS: Alanine Aminotransferase 29 U/L (6-35); Albumin Level 4.3 g/dL (3.5-5.1); Alkaline Phosphatase 74 U/L (38-126); Anion Gap 6 mmol/L (8-16); Aspartate Amino Transferase 26 U/L (14-36); Bilirubin,Total 0.6 mg/dL (0.2-1.3); Blood Urea Nitrogen 16 mg/dL (7-17); Calcium 8.9 mg/dL (8.4-10.2); Carbon Dioxide 30 mmol/L (22-30); Chloride 103 mmol/L (98-107); Cholesterol 219 mg/dL (0-200); Estimated Glomerular Filt Rate > 60; Glucose 107 mg/dL (65-110); HDL Direct 68 mg/dL; Potassium 3.8 mmol/L (3.4-5.0); Sodium 139 mmol/L (137-145); Triglycerides 107 mg/dL (<150); Uric Acid 4.9 mg/dL (2.5-7.5)
[2023-09-21 08:32] LABS: LDL Cholesterol Direct 111 mg/dL
[2023-09-21 08:45] LABS: Creatinine Urine 162.3 mg/dL
[2023-09-21 08:50] LABS: Microalbumin Urine Random 14.6 mg/L (0-16.7)
[2023-09-21 09:24] LABS: Hemoglobin A1C 5.1 % (<5.7)
== END 2023-09-21 07:32 | disposition home or self-care (01) ==
LOC: ANHLAB 07:33
PROVIDERS: PCP Family Medicine; Visit Provider Family Medicine
DX: E11.9 Type 2 diabetes mellitus without complications (principal); E79.0 Hyperuricemia without signs of inflammatory arthritis and tophaceous disease; R53.82 Chronic fatigue, unspecified; E78.2 Mixed hyperlipidemia; I10 Essential (primary) hypertension
CPT/HCPCS: 36415; 80053; 80061; 82043; 83036; 84443; 84550

== ENCOUNTER 2023-10-16 13:32 | Outpatient (CLI) | payer OTHER, SELFPAY ==
[2023-10-16 13:48] LABS: Basophils Percent Auto 0.3 % (0.2-1.2); Eosinophils Absolute Auto 0.1 K/mm3 (0-0.3); Eosinophils Percent Auto 1.4 % (0-4.4); Hematocrit 38.6 % (37.0-47.0); Hemoglobin 12.5 g/dL (12.0-15.0); Immature Granulocyte Absolute 0.02 K/mm3 (0.00-0.031); Immature Granulocyte Percent A 0.3 % (0-0.5); Lymphocytes Absolute Auto 2.07 K/mm3 (0.9-3.2); Lymphocytes Percent Auto 31.3 % (18.3-44.2); Mean Corpuscular HGB Conc 32.4 g/dl (32-36); Mean Corpuscular Hemoglobin 29.2 pg (26-34); Mean Corpuscular Volume 90.2 fl (80-100); Mean Platelet Volume 9.4 fl (7.4-10.4); Monocytes Absolute Auto 0.5 K/mm3 (0.1-0.6); Monocytes Percent Auto 7.7 % (2.6-8.5); Neutrophils Absolute Auto 3.9 K/mm3 (1.3-6.7); Platelet Count Result 227 k/mm3 (150-375); Red Blood Count 4.28 M/mm3 (4.2-5.4); Red Cell Distribution Width 12.6 % (11.5-14.5); White Blood Count 6.6 K/mm3 (4.5-10.0)
[2023-10-16 15:26] LABS: Alanine Aminotransferase 36 U/L (6-35); Albumin Level 4.3 g/dL (3.5-5.1); Alkaline Phosphatase 81 U/L (38-126); Anion Gap 9 mmol/L (8-16); Aspartate Amino Transferase 32 U/L (14-36); Bilirubin,Total 0.6 mg/dL (0.2-1.3); Blood Urea Nitrogen 18 mg/dL (7-17); Calcium 9.5 mg/dL (8.4-10.2); Carbon Dioxide 26 mmol/L (22-30); Chloride 105 mmol/L (98-107); Estimated Glomerular Filt Rate > 60; Glucose 96 mg/dL (65-110); Potassium 3.9 mmol/L (3.4-5.0); Sodium 140 mmol/L (137-145)
[2023-10-19 14:01] LABS: CA 15-3 12 U/mL (<32)
== END 2023-10-16 13:33 | disposition home or self-care (01) ==
PROVIDERS: PCP Family Medicine; Visit Provider Internal Medicine Hematology & Oncology
DX: C50.411 Malignant neoplasm of upper-outer quadrant of right female breast (principal); Z17.0 Estrogen receptor positive status [ER+]
CPT/HCPCS: 36415; 80053; 85025; 86300

== ENCOUNTER 2024-04-05 18:54 | Observation (INO) | payer OTHER, SELFPAY ==
[2024-04-05] VITALS (8 sets, daily range): BP systolic 113–137; BP diastolic 70–88; PULSE 70–92; RESP 16–20; TEMP 36.6–36.7; O2SAT 97–100; BMI 38.9
--- NOTE | ~2024-04-05 | CT_ITS ---
EXAMINATION: CT abdomen pelvis w con DATE: 04/05/2024 21:45 INDICATION: Right lower quadrant abdominal pain TECHNIQUE: Computed tomography (CT) of the abdomen and pelvis was performed with 100 mL Omnipaque-350 intravenous contrast. Automated exposure control and iterative reconstruction technique were employe d. The dose-length product was 1072.26 mGy-cm. COMPARISON: 09/21/2017 FINDINGS: Lung bases are clear. Heart size is normal. No pericardial or pleural effusion. Small sliding-type hi atal hernia. Liver, gallbladder, spleen, pancreas, bilateral adrenal glands are normal. Bilateral low -attenuation renal cysts, the largest on the left measuring 1.5 cm. The appendix is dilated to 10 mm with mild surrounding inflammatory stranding consistent with acute appendicitis. Remainder of the bow els are unremarkable. Bladder is normal. The uterus is not identified and has likely been surgically resected. No abscess or free intraperitoneal gas or fluid. No pathologically enlarged abdominal or pe lvic lymphadenopathy. Mild lumbar spondylosis with severe lower lumbar facet osteoarthritis. There is also severe bilateral sacroiliac osteoarthritis. IMPRESSION: 1. Acute appendicitis. Reviewed, dictated and finalized at location A. IMPRESSION: 1. Acute appendicitis.
[2024-04-05 20:08] LABS: Basophils Percent Auto 0.1 % (0.2-1.2); Eosinophils Absolute Auto 0.1 K/mm3 (0-0.3); Eosinophils Percent Auto 1.4 % (0-4.4); Hematocrit 37.1 % (37.0-47.0); Hemoglobin 12.4 g/dL (12.0-15.0); Immature Granulocyte Absolute 0.02 K/mm3 (0.00-0.031); Immature Granulocyte Percent A 0.3 % (0-0.5); Lymphocytes Absolute Auto 1.54 K/mm3 (0.9-3.2); Lymphocytes Percent Auto 21.3 % (18.3-44.2); Mean Corpuscular HGB Conc 33.4 g/dl (32-36); Mean Corpuscular Hemoglobin 30.8 pg (26-34); Mean Corpuscular Volume 92.1 fl (80-100); Mean Platelet Volume 9.9 fl (7.4-10.4); Monocytes Absolute Auto 0.5 K/mm3 (0.1-0.6); Monocytes Percent Auto 7.2 % (2.6-8.5); Neutrophils Absolute Auto 5.1 K/mm3 (1.3-6.7); Neutrophils Percent Auto 69.7 % (45.5-73.1); Platelet Count Result 187 k/mm3 (150-375); Red Blood Count 4.03 M/mm3 (4.2-5.4); Red Cell Distribution Width 12.6 % (11.5-14.5); White Blood Count 7.2 K/mm3 (4.5-10.0)
[2024-04-05 20:19] LABS: Alanine Aminotransferase 25 U/L (6-35); Albumin Level 4.3 g/dL (3.5-5.1); Alkaline Phosphatase 69 U/L (38-126); Anion Gap 6 mmol/L (4-12); Aspartate Amino Transferase 25 U/L (14-36); Bilirubin,Total 0.6 mg/dL (0.2-1.3); Blood Urea Nitrogen 17 mg/dL (7-17); Carbon Dioxide 33 mmol/L (22-30); Chloride 100 mmol/L (98-107); Estimated CRCL calculation 82 ml/min; Estimated Glomerular Filt Rate > 60; Glucose 114 mg/dL (65-110); Lipase 114 U/L (23-300); Sodium 139 mmol/L (137-145)
[2024-04-05 20:22] LABS: Appearance Urine Cloudy (Clear); Bacteria Urine 4+ /hpf; Bilirubin Urine Negative (Negative); Blood Urine Negative (Negative); Color Urine Yellow (Yellow); Glucose Urine UA Negative (Negative); Ketones Urine Trace mg/dL (Negative); Leukocyte Esterase Ur 1+ LEU/UL (Negative); Nitrate Urine Negative (Negative); Non Pathogenic Casts 0-2; Protein Urine Trace mg/dL (Negative); Specific Grav Ur 1.023 (1.001-1.035); Squamous Epithelial Cell Urine Moderate /hpf (Few); Urobilinogen Urine 0.2 mg/dL (<2.0); WBC Urine 21-50 /hpf (0-3)
[2024-04-05 20:44] LABS: Add Urine Microscopic? YES
--- NOTE | 2024-04-05 21:24 | ED.ABDPAIN ---
HPI - Abdominal Pain General Chief Complaint: Abdominal Pain <THAIS Perkins Last Filed: 04/05/24 22:13> Stated Complaint: RLQ ABD pain <THAIS Perkins Last Filed: 04/05/24 22:13> Time Seen by Provider: 04/05/24 20:03 <Dahlia Mancilla PA-C - Last Filed: 04/05/24 22:13> History of Present Illness HPI narrative: 59-year-old female with history of hypertension and COPD presents to the emergency department for right lower quadrant abdominal pain for 3 days. Patient describes the pain as a severe stabbing pain in her lower quadrant That radiates to her back. Denies aggravating or alleviating factors. Denies dysuria or hematuria, urinary frequency urgency, N/V/ D, fever. Denies decrease flatulence. Last bowel movement was today and normal. Endorses a prior history of hysterectomy, otherwise no abdominal surgeries. Denies prior history of kidney stones. <THAIS Perkins Last Filed: 04/05/24 22:13> Related Data Home Medications: Home Medications Medication Instructions Recorded Confirmed loratadine 10 mg tablet 10 mg PO DAILY 08/08/19 04/05/24 cxpjm-2u-vbe-epa-fish oil 120 1 cap PO DAILY 08/08/19 04/05/24 mg-180 mg-60 mg-1,200 mg capsule, DR (Fish Oil) multivitamin 1 tablet PO DAILY 04/09/20 04/05/24 fluticasone fur. 100 mcg-umeclid 1 inh inhalation DAILY PRN 11/14/23 04/05/24 62.5 mcg-vilant 25 mcg Shortness Of Breath Or Wheezing inhalat.powder (Trelegy Ellipta) ipratropium bromide 21 mcg (0.03 See Rx Instructions .Route 04/05/24 04/05/24 %) nasal spray .COMPLEX PRN Dry Nasal Passages <THAIS Perkins Last Filed: 04/05/24 22:13> Allergies/Adverse Reactions: Allergies Allergy/AdvReac Type Severity Reaction Status Date / Time levofloxacin Allergy Unknown hives Verified 04/05/24 18:59 anastrozole AdvReac Severe Joint Pain Verified 04/05/24 18:59 <Dahlia Mancilla PA-C - Last Filed: 04/05/24 22:13> Review of Systems Review of Systems: All systems reviewed & are unremarkable except as noted in HPI and below <Dahlia Mancilla PA-C - Last Filed: 04/05/24 22:13> PMFSH Past Medical History Medical History: Medical History BMI 40.0-44.9, adult BP (high blood pressure) Breast cancer, right Chronic fatigue Elevated random blood glucose level Ingrown toenail of left foot S/P radiation > 12 weeks Stress incontinence RICK (stress urinary incontinence, female) <Dahlia Mancilla PA-C - Last Filed: 04/05/24 22:13> Surgical History Surgical History: Surgical History H/O bladder repair surgery H/O lumpectomy S/P hysterectomy with oophorectomy <Dahlia Mancilla PA-C - Last Filed: 04/05/24 22:13> Family History Family History: Family History (Updated 04/05/24 @ 23:32 by Rose Mansfield RN) Mother Patient's mother is Family history of pancreatic cancer Hypertension Father Hypertension Heart failure COPD (chronic obstructive pulmonary disease) Emphysema lung <Dahlia Mancilla PA-C - Last Filed: 04/05/24 22:13> Social History Social History: Social History Social History: Smoking packs per day: 1 Smoking cigarettes per day: 20.0 Years smoked: 30 Smoking pack-years: 30.00 Smoking status: Current some day smoker Tobacco type: cigarettes Second hand tobacco smoke exposure: Yes Smoking end date: 08/30/23 Alcohol intake: current Drinks per week: 7 Alcohol use details: Occasionally Substance use: never Substance use type: does not use Do You Feel Safe in your Home?: Yes Lack of Transportation: No Lack of Food: Never True Current Housing: I Have Housing Concerned About Future Housing: No Difficulty Paying Gas/Electric Bills: No Difficulty Paying for Me
[2024-04-05] MEDS: MORPHINE SULFATE (*CRX) 4 MG/ML INJ IV PUSH (21:54)
[2024-04-05] MEDS: SODIUM CHLORIDE 0.9% IV 1,000 ML 999 ML IV CONT (21:54)
[2024-04-05] MEDS: PIPERACILLN/TAZ 3.375GM/NS50ML 3.375 GM/50 ML BAG IVPB (22:37)
--- NOTE | 2024-04-05 23:01 | PM.IMHP ---
H&P: HPI History of Present Illness Date/Time: 04/05/24 23:01 Chief Complaint: RLQ pain Narrative: This is a 59 yo female with PMHx significant for HTN, Tobacco dependence.Patient presents to ED due to RLQ pain for the last 3 days or so, denies any fevers, rigors, chills, has had poor per oral intake however was able to have a meal before coming to ED. Denies n/v had one episode of diarrhea followed by constipation. Patient found to have acute appendicitis. EXAMINATION: CT abdomen pelvis w con DATE: 04/05/2024 21:45 INDICATION: Right lower quadrant abdominal pain TECHNIQUE: Computed tomography (CT) of the abdomen and pelvis was performed with 100 mL Omnipaque-350 intravenous contrast. Automated exposure control and iterative reconstruction technique were employed. The dose-length product was 1072.26 mGy-cm. COMPARISON: 09/21/2017 FINDINGS: Lung bases are clear. Heart size is normal. No pericardial or pleural effusion. Small sliding-type hiatal hernia. Liver, gallbladder, spleen, pancreas, bilateral adrenal glands are normal. Bilateral low-attenuation renal cysts, the largest on the left measuring 1.5 cm. The appendix is dilated to 10 mm with mild surrounding inflammatory stranding consistent with acute appendicitis. Remainder of the bowels are unremarkable. Bladder is normal. The uterus is not identified and has likely been surgically resected. No abscess or free intraperitoneal gas or fluid. No pathologically enlarged abdominal or pelvic lymphadenopathy. Mild lumbar spondylosis with severe lower lumbar facet osteoarthritis. There is also severe bilateral sacroiliac osteoarthritis. IMPRESSION: 1. Acute appendicitis. Review of Systems Review of Systems: RLQ pain PMFSH Past Medical History Medical History BMI 40.0-44.9, adult Breast cancer, right Chronic fatigue Elevated random blood glucose level HTN (hypertension) Ingrown toenail of left foot S/P radiation > 12 weeks Smoker Stress incontinence RICK (stress urinary incontinence, female) Surgical History Surgical History H/O bladder repair surgery H/O lumpectomy S/P hysterectomy with oophorectomy Family History Family History Mother Patient's mother is Family history of pancreatic cancer Hypertension Father Hypertension Heart failure COPD (chronic obstructive pulmonary disease) Emphysema lung Social History Social History Social History: Smoking packs per day: 1 Smoking cigarettes per day: 20.0 Years smoked: 30 Smoking pack-years: 30.00 Smoking status: Current some day smoker Tobacco type: cigarettes Second hand tobacco smoke exposure: Yes Smoking end date: 08/30/23 Alcohol intake: current Drinks per week: 7 Alcohol use details: Occasionally Substance use: never Substance use type: does not use Do You Feel Safe in your Home?: Yes Lack of Transportation: No Lack of Food: Never True Current Housing: I Have Housing Concerned About Future Housing: No Difficulty Paying Gas/Electric Bills: No Difficulty Paying for Meds: No Currently Unemployed: No Education: Bachelor's Degree Difficulty w/ Childcare or Family Care: No Living arrangements: with family Occupation/Education: occupation 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
--- NOTE | 2024-04-05 23:15 | ADMGEN ---
This patient, Mari Lee, was admitted to 2 Medical Room 259-01. Patient/family oriented to hospital policies and general routines including ID bracelet, bed and alarms, visiting hours, pain management, procedures, bathroom and other care routines, personal items, smoking policy, room service/diet, and visiting hours. Information on how to activate the Rapid Response Team has been discussed. Patient/Family are encouraged to report perceived risks to care and to ask questions if they do not understand what they are told or what they should do.
[2024-04-05] MEDS: SODIUM CHLORIDE 0.9% IV 1,000 ML 125 ML IV CONT (23:26)
[2024-04-06] VITALS (13 sets, daily range): BP systolic 121–166; BP diastolic 74–97; PULSE 58–81; RESP 12–20; TEMP 36.2–36.8; O2SAT 95–100
[2024-04-06] MEDS: PIPERACILLN/TAZ 3.375GM/NS50ML 3.375 GM/50 ML BAG IVPB ×3 (05:01→17:17)
[2024-04-06] MEDS: SODIUM CHLORIDE 0.9% IV 1,000 ML 125 ML IV CONT (05:02)
[2024-04-06] MEDS: atenoloL 50 MG TABLET PO (08:28)
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
--- NOTE | 2024-04-06 09:23 | ECG_ITS ---
Test Date: 2024-04-06 09:43:44 Measurements Intervals [place] Rate: 63 P: 99 KS: 212 QRS: 34 QRSD: 94 T: 25 QT: 422 QTc: 434 Interpretive Statements SINUS RHYTHM WITH FIRST DEGREE AV BLOCK BASELINE ARTIFACT- V3 BORDERLINE ECG No previous ECG available for comparison Electronically Signed On 04-06-2024 10:09:24 CDT by Jam Merino D.O.
--- NOTE | 2024-04-06 11:05 | PM.IMPN ---
Progress Note: A&P Assessment and Plan (1) Smoker: Code(s): F17.200 - Nicotine dependence, unspecified, uncomplicated Status: Chronic (2) HTN (hypertension): Qualifiers: Hypertension type: primary hypertension Qualified Code(s): I10 - Essential (primary) hypertension Code(s): I10 - Essential (primary) hypertension Status: Chronic (3) Acute appendicitis, uncomplicated: Code(s): K35.80 - Unspecified acute appendicitis Status: Acute (4) Abnormal urinalysis: Code(s): R82.90 - Unspecified abnormal findings in urine Status: Acute (5) UTI (urinary tract infection): Qualifiers: Urinary tract infection type: site unspecified Hematuria presence: without hematuria Qualified Code(s): N39.0 - Urinary tract infection, site not specified Code(s): N39.0 - Urinary tract infection, site not specified Status: Acute Plan 59-year-old female with past medical history of COPD, active tobacco abuse, hypertension, history of UTIs, history of breast cancer presents with 3 days of right lower quadrant pain. She denied nausea vomiting diarrhea fever chills shortness of breath or chest pain. [place] ER evaluation demonstrated acute uncomplicated appendicitis on CT scan of abdomen and pelvis. She previously had laparoscopic abdominal hysterectomy with bilateral salpingo-oophorectomy. History of breast cancer status post right lumpectomy for years prior. Patient admitted on 04/05/2024 for appendicitis. On presentation she is hemodynamically stable with a white count 7.2. She reports foul-smelling urine. Urinalysis reveals cloudy appearance, trace ketones, 1+ leuk esterase, 21-50 wbc's, 4+ bacteria, moderate squamous epithelial cells. April 06: Continue p.r.n. morphine. Continue PT atenolol. Anticipate surgery in the afternoon. Received Zosyn in the ER, will continue at 3.75 g q.6 hours. Urine culture pending. Prior urine culture pansensitive E coli. Zofran p.r.n. QTC 434. 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 Nicotine patch if needed. -COPD: No active breathing issues. Continue to monitor F/E/N: Normal saline at 125 cc/hour, replace lytes as needed, NPO GI prophylaxis: Not indicated DVT prophylaxis: SCDs Lines: Peripheral IV Code Status: Full code Dispo: Anticipate discharge to home. Stable on medical floor. Medication reconciliation obtained via the following: Via patient's verbal confirmation of medications Social Drivers of Health -Living arrangements, functional status, significant history: Lives at home with spouse. Independent at baseline, does not use assistive devices for ambulation. -Patient was screened for food insecurity, housing instability, transportation needs, utility difficulties, and interpersonal safety. -High risk for readmission: No Agents of Abuse -Illicit drug abuse: Denies -ETOH abuse: Denies -Tobacco/nicotine: Yes, 1 pack per day. Greater than 3 minutes cessation counseling provided. -Energy drinks: Denies -Additional supplements: Denies Note to the patient: The Century Cures Act makes medical notes like these available to patients in the interest of transparency. Please be advised this is a medical document. It is intended for mlpi-gb-kfxl communication. It is written in medical language and may contain unfamiliar abbreviations or verbiage. Components may appear blunt or direct. Medical documents are intended to carry relevant information, facts as evident, and the clinical opinion of the practitioner at the time of the encounter. This note was generated by a speech recognition system and may contain inherent errors or omissions not intended by the user. Grammatical errors, random word insertions, deletions, pronoun errors and incomplete sentences are occasional consequences of this
--- NOTE | 2024-04-06 13:15 | WPDHPUPDATE1 ---
History and Physical Update Update Date/Time: 04/06/24 13:15 History and Physical has been reviewed, including an updated exam of the patient. There are NO changes in the patient's condition. Risks, benefits, and alternatives have been discussed and questions answered. Patient agrees to proceed with procedure.
--- NOTE | 2024-04-06 13:46 | PC.NURSE ---
To OR at 1345, IV locked off. Report given to PRISCILLA Aguillon.
[2024-04-06] MEDS: MORPHINE SULFATE (*CRX) 4 MG/ML INJ IV PUSH (13:57)
--- NOTE | 2024-04-06 14:24 | WPDANESEPPF ---
Anes - Initial Pre Proc Eval Procedure: Operation Date: 04/06/24 15:00 Proposed Procedures p Laparoscopic Appendectomy - [place] Lopez DO Date/Time: 04/06/24 14:24 Surgeon: Tonia Ortiz MD Pre Op Diagnosis: Acute appendicitis Patient Data Age: 59 Gender: F Height: 1.65 m Weight: 106.3 kg Last Vital Signs Temp 36.4 C 04/06/24 06:08 Pulse 76 04/06/24 08:28 Resp 16 04/06/24 06:08 BP 136/80 04/06/24 06:08 Pulse Ox 97 04/06/24 06:08 O2 Del Method Room Air 04/06/24 08:00 Allergies Allergy/AdvReac Type Severity Reaction Status Date / Time levofloxacin Allergy Unknown hives Verified 04/05/24 18:59 anastrozole AdvReac Severe Joint Pain Verified 04/05/24 18:59 Home Medications Medication Instructions Recorded Confirmed Type loratadine 10 mg tablet 10 mg PO DAILY 08/08/19 04/05/24 History rgvaf-9g-yox-epa-fish oil 120 1 cap PO DAILY 08/08/19 04/05/24 History mg-180 mg-60 mg-1,200 mg capsule, DR (Fish Oil) multivitamin 1 tablet PO DAILY 04/09/20 04/05/24 History atenolol 50 mg tablet 50 mg PO DAILY #90 tabs 10/12/23 04/05/24 Rx fluticasone fur. 100 mcg-umeclid 1 inh inhalation DAILY PRN 11/14/23 04/05/24 History 62.5 mcg-vilant 25 mcg Shortness Of Breath Or Wheezing inhalat.powder (Trelegy Ellipta) montelukast 10 mg tablet 10 mg PO DAILY #90 tabs 01/08/24 04/05/24 Rx (Singulair) ipratropium bromide 21 mcg (0.03 See Rx Instructions .Route 04/05/24 04/05/24 History %) nasal spray .COMPLEX PRN Dry Nasal Passages Laboratory Tests 04/05/24 04/05/24 20:00 20:07 WBC 7.2 K/mm3 (4.5-10.0) RBC 4.03 L M/mm3 (4.2-5.4) Hgb 12.4 g/dL (12.0-15.0) Hct 37.1 % (37.0-47.0) MCV 92.1 fl (80-100) MCH 30.8 pg (26-34) MCHC 33.4 g/dl (32-36) RDW 12.6 % (11.5-14.5) Plt Count 187 k/mm3 (150-375) MPV 9.9 fl (7.4-10.4) Immature Gran % (Auto) 0.3 % (0-0.5) Neut % (Auto) 69.7 % (45.5-73.1) Lymph % (Auto) 21.3 % (18.3-44.2) [place] % (Auto) 7.2 % (2.6-8.5) Eos % (Auto) 1.4 % (0-4.4) Baso % (Auto) 0.1 L % (0.2-1.2) Lymph # (Auto) 1.54 K/mm3 (0.9-3.2) [place]atte # (Auto) 0.5 K/mm3 (0.1-0.6) Eos # (Auto) 0.1 K/mm3 (0-0.3) Baso # (Auto) 0.0 K/mm3 (0.0-0.1) Abs Immat Gran (auto) 0.02 K/mm3 (0.00-0.031) Absolute Neuts (auto) 5.1 K/mm3 (1.3-6.7) Absolute Nucleated RBC 0.000 K/mm3 (0.0-0.012) Nucleated RBC % 0.0 % (0.0-0.2) Sodium 139 mmol/L (137-145) Potassium 4.0 mmol/L (3.4-5.0) Chloride 100 mmol/L (98-107) Carbon Dioxide 33 H mmol/L (22-30) Anion Gap 6 mmol/L (4-12) BUN 17 mg/dL (7-17) Creatinine 0.80 mg/dL (0.7-1.0) Estim Creat Clear Calc 82 ml/min Estimated GFR > 60 (59 - ) Glucose 114 H mg/dL (65-110) Calcium 9.0 mg/dL (8.4-10.2) Total Bilirubin 0.6 mg/dL (0.2-1.3) AST 25 U/L (14-36) ALT 25 U/L (6-35) Alkaline Phosphatase 69 U/L (38-126) Total Protein 7.0 g/dL (6.3-8.2) Albumin 4.3 g/dL (3.5-5.1) Lipase 114 U/L (23-300) Urine Color Yellow (Yellow) Urine Appearance Cloudy H (Clear) Urine pH 7.0 (5.0-9.0) Ur Specific Stephen 1.023 (1.001-1.035) Urine Protein Trace mg/dL (Negative) Urine Glucose (UA) Negative mg/dL (Negative) Urine Ketones Trace H mg/dL (Negative) Ur Blood (Man) Negative (Negative) Urine Nitrate Negative (Negative) Urine Bilirubin Negative (Negative) Urine Urobilinogen 0.2 mg/dL (<2.0) Leukocyte Esterase Rfl 1+ H DEMETRIA/UL (Negative) Urine RBC 3-5 H /hpf (0-2) Urine WBC 21-50 H /hpf (0-3) Ur Squamous Epith Cells Moderate /hpf (Few) Urine Bacteria 4+ H /hpf
[2024-04-06] MEDS: BUPIVACAINE/EPINEPHRINE 0.5% 50 ML VIAL 30 ML INFILTRATE (15:22)
--- NOTE | 2024-04-06 15:45 | W.PM.PROC2 ---
Procedure Note - Detailed Date of Procedure 04/06/24 Pre-op Diagnosis Acute appendicitis Post-op Diagnosis Same Procedure Performed Laparoscopic appendectomy Surgeon Cleveland Lopez, DO Anesthesia General and Local (0.5% bupivicaine with epinephrine) Indications This is a 59-year-old woman who presented to the emergency department last night with right lower quadrant pain for the past 2-3 days. Her white blood count was normal but CT showed evidence of acute appendicitis. She was started on IV antibiotics and was admitted for further treatment. Discussions were made with the patient about treatment options and decision was made to proceed with laparoscopic appendectomy, possible open. Findings Laparoscopic appendectomy was performed. The appendix appeared dilated and inflamed, but there was no evidence of perforation or abscess. No other intra-abdominal abnormalities were noted. Base of the appendix appeared healthy and viable. The appendix was removed and sent to the lab for pathology. Description of Procedure Procedure as well as risks, benefits, and alternatives were explained to the patient. The patient agreed to proceed. Written consent was obtained and placed in chart prior to procedure. The patient was brought back to surgical suite. She was placed supine on operating table. Time-out was done to confirm the patient and procedure. The patient was then intubated by the Anesthesia Department. Her abdomen was prepped and draped in sterile fashion using chlorhexidine prep. A 5 mm incision was made just to the left of the patient's umbilicus and a 5 mm Optiview trocar was advanced through the abdominal layers under direct visualization. Once inside the peritoneal cavity, carbon dioxide insufflation was used to create a pneumoperitoneum. The camera was inserted and the abdomen was inspected. No immediate abnormalities were identified. The patient was then placed in slight Trendelenburg position and rotated to the left. A 5 mm incision was made in the suprapubic region in midline and a 5 mm trocar was inserted under direct visualization. A 12 mm incision was made in the left lower quadrant and a 12 mm trocar was inserted under direct visualization. The right lower quadrant was carefully inspected. The cecum was identified and then this was traced back to the appendix. The appendix was identified and grasped at the mesoappendix and lifted anteriorly. Careful blunt dissection was carried out at the base of the appendix through the mesoappendix using a [place] grasper. An Endo-ULICES 45 mm blue load stapler was then advanced across the base of the appendix and clamped and fired. A white reload was then clamped across the mesoappendix and fired. This freed up our appendix completely. It was then placed in an EndoCatch bag and removed through the left lower quadrant port. The staple lines were then inspected. Hemostasis appeared adequate and the staple lines appeared secure. The area was then irrigated with sterile saline. The pelvis was then carefully inspected and irrigated with sterile saline as well and the remainder of the abdomen was carefully inspected. The patient was then flattened out in bed. One final inspection was made around the abdominal cavity and no other abnormalities were seen. The left lower quadrant port was removed and a Yassine-Donny cone was used to approximate the fascia with an 0 Vicryl simple interrupted suture. The remaining ports were then removed under direct visualization. The camera was removed and the pneumoperitoneum was released. 0.5% bupivacaine with epinephrine was infiltrated locally around each of the incisions. The skin of the incisions was then approximated using 4-0 Monocryl subcuticular suture and Exofin glue was applied on top. The patient was then awakened from anesthesia, extubated, and transferred to Recovery. Estimated Blood Loss 10 Urine Output 900 Pathology Yes (Appendix) Complications
[2024-04-06] MEDS: LACTATED RINGERS 1,000 ML 30 ML IV CONT ×2 (15:57)
--- NOTE | 2024-04-06 17:05 | PC.NURSE ---
Returned from OR at 1705. Report received from Rima.
[2024-04-06] MEDS: HYDROcodone/acetaminophen (*CRX) 10-325 MG TABLET 1 TAB PO ×2 (17:17→22:19)
[2024-04-06] MEDS: LACTATED RINGERS 1,000 ML 100 ML IV CONT (17:18)
[2024-04-07] MEDS: PIPERACILLN/TAZ 3.375GM/NS50ML 3.375 GM/50 ML BAG IVPB ×3 (00:01→12:01)
[2024-04-07] MEDS: HYDROcodone/acetaminophen (*CRX) 10-325 MG TABLET 1 TAB PO ×3 (02:35→11:04)
[2024-04-07 02:40] VITALS: BP 140/75; PULSE 60; RESP 17; TEMP 36.4; O2SAT 98
--- NOTE | 2024-04-07 06:05 | PC.NURSE ---
reviewed and agree with all charting and assessments by Ghada PIZARRO
[2024-04-07 06:24] LABS: Hematocrit 34.6 % (37.0-47.0); Hemoglobin 11.3 g/dL (12.0-15.0); Immature Granulocyte Absolute 0.02 K/mm3 (0.00-0.031); Immature Granulocyte Percent A 0.3 % (0-0.5); Lymphocytes Absolute Auto 0.76 K/mm3 (0.9-3.2); Lymphocytes Percent Auto 11.3 % (18.3-44.2); Mean Corpuscular HGB Conc 32.7 g/dl (32-36); Mean Corpuscular Volume 91.8 fl (80-100); Mean Platelet Volume 9.2 fl (7.4-10.4); Monocytes Absolute Auto 0.4 K/mm3 (0.1-0.6); Monocytes Percent Auto 5.5 % (2.6-8.5); Neutrophils Absolute Auto 5.6 K/mm3 (1.3-6.7); Neutrophils Percent Auto 82.9 % (45.5-73.1); Platelet Count Result 171 k/mm3 (150-375); Red Blood Count 3.77 M/mm3 (4.2-5.4); Red Cell Distribution Width 12.1 % (11.5-14.5); White Blood Count 6.7 K/mm3 (4.5-10.0)
[2024-04-07 06:34] VITALS: BP 146/71; PULSE 65; RESP 17; TEMP 37; O2SAT 98
[2024-04-07 06:43] LABS: Anion Gap 8 mmol/L (4-12); Blood Urea Nitrogen 9 mg/dL (7-17); Calcium 8.5 mg/dL (8.4-10.2); Carbon Dioxide 28 mmol/L (22-30); Chloride 101 mmol/L (98-107); Estimated CRCL calculation 106 ml/min; Estimated Glomerular Filt Rate > 60; Glucose 109 mg/dL (65-110); Sodium 137 mmol/L (137-145)
[2024-04-07 08:07] VITALS: PULSE 65
[2024-04-07] MEDS: ENOXAPARIN 40 MG/0.4 ML SYRINGE SUB-Q (08:07)
[2024-04-07] MEDS: MONTELUKAST SODIUM 10 MG TABLET PO (08:07)
[2024-04-07] MEDS: atenoloL 50 MG TABLET PO (08:07)
[2024-04-07] MEDS: LORATADINE 10 MG TABLET PO (08:07)
[2024-04-07 10:05] VITALS: BP 150/71; PULSE 60; RESP 20; TEMP 36.3; O2SAT 98
--- NOTE | 2024-04-07 13:00 | PM.PNGS ---
Progress Note: A&P Assessment and Plan (1) Acute appendicitis, uncomplicated: Code(s): K35.80 - Unspecified acute appendicitis Status: Acute Assessment and Plan: Postop day 1 and doing well following laparoscopic appendectomy for acute uncomplicated appendicitis. Advance to regular diet. Surgically stable for discharge today. Follow-up with Dr. Lopez in 2 weeks. Plan I have discussed the patient's case and plan of care with Dr. Lopez. Subjective Subjective Date/Time Seen: 04/07/24 09:00 Post Op day: 1 (lap appendectomy) Patient reports: tolerating liquids well, voiding w/o difficulty and afebrile Interval history: Patient doing well. She reports incisional pain with movement and getting up out of bed. No nausea or vomiting. Diet was only at full liquids, but reportedly no issues with tolerating her diet. Will advance to solids for lunch. Exam Const: General: comfortable and no acute distress Orientation/consciousness: patient oriented x3 GI: Inspection: non-distended, incision (incisions dry and intact) and other (minimal ecchymosis near incisions, no hematoma) GI Palp: Yes Soft to palpation, Yes Tenderness to palpation present (GI) (incisional) and No Guarding due to palpation present (GI) Auscultation: Hypoactive bowel sounds present Neuro: General: moves all extremities and no focal motor deficits Extrem: General: no calf tenderness and no edema Psych: Mental Status: mental status grossly normal Insight: Good insight present (Psych) Objective Data Vital Signs Vital Signs: Vital Signs - 24 hr 04/06/24 14:34 04/06/24 15:57 04/06/24 16:10 Temperature 97.6 F 97.8 F Pulse Rate 65 81 73 Respiratory Rate 14 14 14 Blood Pressure 155/80 H 121/97 H 155/75 H Pulse Oximetry 99 99 100 Oxygen Delivery Room Air Simple Face Mask Simple Face Mask Oxygen Flow Rate 6 6 04/06/24 16:25 04/06/24 16:40 04/06/24 16:55 Temperature 97.1 F L Pulse Rate 67 68 73 Respiratory Rate 12 14 16 Blood Pressure 159/81 H 158/81 H 166/83 H Pulse Oximetry 100 97 97 Oxygen Delivery Room Air Room Air Room Air Oxygen Flow Rate 04/06/24 17:10 04/06/24 17:25 04/06/24 17:55 Temperature 97.6 F 97.5 F L 97.9 F Pulse Rate 65 66 65 Respiratory Rate 14 18 20 Blood Pressure 155/87 H 148/84 H 138/82 Pulse Oximetry 95 97 97 Oxygen Delivery Oxygen Flow Rate 04/06/24 18:43 04/06/24 22:40 04/06/24 20:00 Temperature 97.7 F 98.2 F Pulse Rate 58 L 68 Respiratory Rate 17 18 Blood Pressure 137/84 135/74 Pulse Oximetry 96 98 Oxygen Delivery Room Air Oxygen Flow Rate 04/07/24 02:40 04/07/24 06:34 04/07/24 08:07 Temperature 97.6 F 98.6 F Pulse Rate 60 65 65 Respiratory Rate 17 17 Blood Pressure 140/75 146/71 H Pulse Oximetry 98 98 Oxygen Delivery Oxygen Flow Rate 04/07/24 10:05 04/07/24 08:00 Temperature 97.4 F L Pulse Rate 60 Respiratory Rate 20 Blood Pressure 150/71 H Pulse Oximetry 98 Oxygen Delivery Room Air Oxygen Flow Rate Intake/Output Intake/Output: Intake & Output 04/04/24 04/05/24 04/06/24 04/07/24 23:59 23:59 23:59 23:59 Intake Total 1050 1940 1870 Output Total 1800 Balance 4370 117 1472 Meds/Results Medications: Active Medications Generic Name Dose Route Start Last Admin Trade Name Freq PRN Reason Stop Dose Admin Hydrocodone Bitart/Acetaminophen 1 tab 04/06/24 16:58 Hydrocodone/Acetaminophen (*Crx) 5-325 Mg Tablet PO Q4H PRN Pain Rated 4-6 Hydrocodone Bitart/Acetaminophen 1 tab 04/06/24 16:58 04/07/24 11:04 Hydrocodone/Acetaminophen (*Crx) 10-325 Mg Tablet PO 1 tab Q4H PRN Administration Pain Rated 7-10 Atenolol 50 mg 04/06/24 09:00 04/07/24 08:07 Atenolol 50 Mg Tablet PO 50 mg DAILY KAYLEEN Administration Enoxaparin Sodium 40 mg 04/07/24 09:00 04/07/24 08:07 Enoxaparin 40 Mg/0.4 Ml Syringe SUB-Q 40 mg DAILY KAYLEEN Administration Fluticasone/Umeclidinium/Vilanterol
--- NOTE | 2024-04-07 13:16 | WPDANESPN ---
Anes - Prog Note Post-Op Date/Time: 04/07/24 13:16 Vital Signs: Last Vital Signs Temp 36.3 C L 04/07/24 10:05 Pulse 60 04/07/24 10:05 Resp 20 04/07/24 10:05 BP 150/71 H 04/07/24 10:05 Pulse Ox 98 04/07/24 10:05 O2 Del Method Room Air 04/07/24 08:00 O2 Flow Rate 6 04/06/24 16:10 Pain Score (VAS): 3 I/O: Intake & Output 04/06/24 04/07/24 04/07/24 23:59 07:59 15:59 Intake Total 1140 1100 770 Balance 1140 1100 770 Laboratory Tests 04/07/24 06:15 04/07/24 06:15 04/07/24 06:15 WBC 6.7 RBC 3.77 L Hgb 11.3 L Hct 34.6 L MCV 91.8 MCH 30.0 MCHC 32.7 RDW 12.1 Plt Count 171 MPV 9.2 Immature Gran % (Auto) 0.3 Neut % (Auto) 82.9 H Lymph % (Auto) 11.3 L [place] % (Auto) 5.5 Eos % (Auto) 0.0 Baso % (Auto) 0.0 L Lymph # (Auto) 0.76 L [place] # (Auto) 0.4 Eos # (Auto) 0.0 Baso # (Auto) 0.0 Abs Immat Gran (auto) 0.02 Absolute Neuts (auto) 5.6 Absolute Nucleated RBC 0.000 Nucleated RBC % 0.0 Sodium 137 Potassium 4.0 Chloride 101 Carbon Dioxide 28 Anion Gap 8 BUN 9 D Creatinine 0.60 L Estim Creat Clear Calc 106 Estimated GFR > 60 Glucose 109 Calcium 8.5 Magnesium 2.0 Microbiology 04/05/24 20:07 Urine Clean Catch Urine Culture - Preliminary Patient Feedback: Patient satisfied with anesthetic care.
[2024-04-07 14:43] VITALS: BP 117/68; PULSE 68; RESP 14; TEMP 36.3; O2SAT 99
--- NOTE | 2024-04-07 14:46 | PM.DS ---
DS: Admitting Diagnosis Discharge Date April 07, 2024 Admitting Diagnosis Abdominal pain DS: Discharge Diagnosis Discharge Diagnosis (1) Smoker: Code(s): F17.200 - Nicotine dependence, unspecified, uncomplicated Status: Chronic (2) HTN (hypertension): Qualifiers: Hypertension type: primary hypertension Qualified Code(s): I10 - Essential (primary) hypertension Code(s): I10 - Essential (primary) hypertension Status: Chronic (3) Acute appendicitis, uncomplicated: Code(s): K35.80 - Unspecified acute appendicitis Status: Acute (4) Abnormal urinalysis: Code(s): R82.90 - Unspecified abnormal findings in urine Status: Acute DS: Summary Hospital Course Hospital Course: 59-year-old female with past medical history of COPD, active tobacco abuse, hypertension, history of UTIs, history of breast cancer presents with 3 days of right lower quadrant pain. She denied nausea vomiting diarrhea fever chills shortness of breath or chest pain. [place] evaluation demonstrated acute uncomplicated appendicitis on CT scan of abdomen and pelvis. She previously had laparoscopic abdominal hysterectomy with bilateral salpingo-oophorectomy. History of breast cancer status post right lumpectomy for years prior. Patient admitted on 04/05/2024 for appendicitis. On presentation she is hemodynamically stable with a white count 7.2. She reports foul-smelling urine. Urinalysis reveals cloudy appearance, trace ketones, 1+ leuk esterase, 21-50 wbc's, 4+ bacteria, moderate squamous epithelial cells. April 06: Continue p.r.n. morphine. Continue PT atenolol. Anticipate surgery in the afternoon. Received Zosyn in the ER, will continue at 3.75 g q.6 hours. Urine culture pending. Prior urine culture pansensitive E coli. Zofran p.r.n. QTC 434. On May 08 the patient is stable for discharge to home. He is passing flatness and tolerating a regular diet. She will follow with Dr. Lopez in the office in 2 weeks. Patient had a lot of pain upon standing postop. She is discharged on a limited amount of narcotic by General surgery. She was also seen by Occupational therapy. She is discharged home with a prescription for outpatient occupational therapy to help return to her independent mobile state. As for her urine analysis being abnormal and complaint of foul-smelling urine, urine culture is not back. She has received several doses of Zosyn and reports her foul-smelling urine has cleared up. She is discharged on another 4 days of Keflex 500 mg p.o. b.i.d.. She previously had E coli grow in the urine which is pansensitive. Will follow the current culture. Adverse effects, risk and benefits of medication discussed. Advised to follow with PCP within 2 weeks. Educated on the warning signs of returning infection and abdominal pain out of proportion. Patient understands and agrees to the above plan. She was full code. Discharged home in stable condition. 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 -COPD: No active breathing issues. Continue to monitor Medication reconciliation obtained via the following: Via patient's verbal confirmation of medications Social Drivers of Health -Living arrangements, functional status, significant history: Lives at home with spouse. Independent at baseline, does not use assistive devices for ambulation. -Patient was screened for food insecurity, housing instability, transportation needs, utility difficulties, and interpersonal safety. -High risk for readmission: No Agents of Abuse -Illicit drug abuse: Denies -ETOH abuse: Denies -Tobacco/nicotine: Yes, 1 pack per day. Greater than 3 minutes cessation counseling provided. -Energy drinks: Denies -Additional supplements: Denies Note to the patient: The Cures Act makes medica
== END 2024-04-07 15:00 | disposition home or self-care (01) ==
LOC: ANHED 22:13 → ANH2MED 23:25
PROVIDERS: Student in an Organized Health Care Education/Training Program; Surgery; Admitting Provider Internal Medicine; Emergency Provider Physician Assistant; PCP Family Medicine; Visit Provider General Practice
PROC: 0DTJ4ZZ Resection of Appendix, Percutaneous Endoscopic Approach (ICD-10-PCS; CPT 44970; principal; 2024-04-06 15:00)
DX: K35.80 Unspecified acute appendicitis (principal); G89.18 Other acute postprocedural pain; R82.90 Unspecified abnormal findings in urine; I10 Essential (primary) hypertension; J44.9 Chronic obstructive pulmonary disease, unspecified; N39.3 Stress incontinence (female) (male); Z85.3 Personal history of malignant neoplasm of breast; Z79.51 Long term (current) use of inhaled steroids; F17.210 Nicotine dependence, cigarettes, uncomplicated; E66.9 Obesity, unspecified; Z68.39 Body mass index [BMI] 39.0-39.9, adult
CPT/HCPCS: 44970; 36415; 74177; 80048; 80053; 81001; 83690; 83735; 85025; 87077; 87086; 87088; 88304; 93005; 96361; 96365; 96375; 97165; 97535; 99285; A9270; G0378; J1100; J1650; J2250; J2270; J2405; J2543; J2704; J3010; J7030; J7120; Q9967

== ENCOUNTER 2024-08-29 09:33 | Outpatient (CLI) | payer OTHER, SELFPAY ==
--- NOTE | ~2024-08-29 | MM_ITS ---
EXAMINATION: MM screening jamie BI w allyn HISTORY: Personal history of right-sided breast cancer diagnosed in 2018 with chemotherapy and radiat ion. TECHNIQUE: Craniocaudal and mediolateral oblique 3-D tomosynthesis images were obtained and synthetic 2-D images were generated. CAD analysis was submitted and interpreted. COMPARISON: Examination is compared with multiple prior studies performed most recently on 08/25/2023 and dating back to 06/24/2017 BREAST PARENCHYMAL COMPOSITION: There are scattered areas of fibroglandular density. FINDINGS: Bulky calcification within the upper outer quadrant of the right breast, consistent with elkin stewart's history. Stable parenchymal pattern without suspicious microcalcifications, unexpected architectural distortio n, discrete masses or significant asymmetry. IMPRESSION: 1. No mammographic evidence of malignancy. 2. Recommend routine screening mammography in one year. BI-RADS Category 2: Benign findings. Reviewed, dictated and finalized at location A. NT ACQUISITION OPERATIONS MANAGER
== END 2024-08-29 09:34 | disposition home or self-care (01) ==
LOC: ANHIMG 09:35
PROVIDERS: PCP Family Medicine; Visit Provider Internal Medicine Hematology & Oncology
DX: Z12.31 Encounter for screening mammogram for malignant neoplasm of breast (principal)
CPT/HCPCS: 77063; 77067

== ENCOUNTER 2024-10-18 15:44 | Outpatient (CLI) | payer OTHER, SELFPAY ==
[2024-10-18 15:59] LABS: Basophils Percent Auto 0.4 % (0.2-1.2); Eosinophils Absolute Auto 0.1 K/mm3 (0-0.3); Eosinophils Percent Auto 1.8 % (0-4.4); Hematocrit 38.7 % (37.0-47.0); Hemoglobin 12.9 g/dL (12.0-15.0); Immature Granulocyte Absolute 0.02 K/mm3 (0.00-0.031); Immature Granulocyte Percent A 0.3 % (0-0.5); Lymphocytes Absolute Auto 1.94 K/mm3 (0.9-3.2); Mean Corpuscular HGB Conc 33.3 g/dl (32-36); Mean Corpuscular Hemoglobin 29.9 pg (26-34); Mean Corpuscular Volume 89.6 fl (80-100); Mean Platelet Volume 9.2 fl (7.4-10.4); Monocytes Absolute Auto 0.5 K/mm3 (0.1-0.6); Monocytes Percent Auto 7.1 % (2.6-8.5); Neutrophils Absolute Auto 4.6 K/mm3 (1.3-6.7); Neutrophils Percent Auto 63.4 % (45.5-73.1); Platelet Count Result 222 k/mm3 (150-375); Red Blood Count 4.32 M/mm3 (4.2-5.4); White Blood Count 7.2 K/mm3 (4.5-10.0)
--- OUTSIDE RECORDS SUMMARY | 2024-10-18 16:16 | XMS_ITS | Encounter Summary ---
Author Organization [facility] Address [address] [place] [address] Care Team Providers Care Forest Examiner Name Role Phone Jaye Mccloud MD Primary Care Provider [phone]- [phone] Encounter Details Date Type Department Care Team (Late Contact Info) Description 09/16/2017 Chart Note [facility] Radiation Therapy [address] [place] [address] [place] [address] [place] [address] Social History Tobacco Use Types Packs/Day Years Used Date Smoking Tobacco: Some Days Cigarettes Comments:5-10 cigarettes/wee k Alcohol Use Standard Drinks/Week Comments Yes 0 (1 standard drink = 0.6 oz pur e alcohol) occasional Comments No Sex and Gender Information Value Date Recorded Sex Assigned at Not on file Legal 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 Gender Identity Not on file Sexual Orientation Not on file documented as of this encounter Plan of Treatment Upcoming Encounters Date Type Department Care Team (Late Contact Info) Description 10/26/2024 10:15 AM CRIMINOLOGY TEACHER Office Visit [facility] Oncology and Hematology - [place] [address] [facility] [address] [place] [address] Prem Asher MD [address] [facility] [address] [place] [address] documented as of this encounter Visit Diagnoses Not on filedocumented in this encounter Care Teams Forest Examiner Relationship Specialty Start Date End Date Jaye Mccloud MD PCP - General Family Practice 09/15/17 documented as of this encounter
--- OUTSIDE RECORDS SUMMARY | 2024-10-18 16:16 | XMS_ITS ---
Author Organization Unknown Medications Medication Instructions Effective Dates (start - stop) Status anastrozole 1 MG Oral Tablet [id number] 0:00:00Z - Completed ipratropium bromide 0.021 MG/ACTUAT Metered Dose Nasal [place] - Completed ipratropium bromide 0.021 MG/ACTUAT Metered Dose Nasal [place] - Completed nitrofurantoin, macrocrystal s 25 MG / nitrofurantoin, monohydrate 75 MG Oral Capsule - Completed - - Compl eted nitrofurantoin, macrocrystal s 25 MG / nitrofurantoin, monohydrate 75 MG Oral Capsule - Completed atenolol 50 MG Oral Tablet [id number]: 00:00Z - Completed atenolol 50 MG Oral Tablet [id number]: 00:00Z - Completed montelukast 10 MG Oral Tablet 2024-01-13 00:00:00Z - Completed montelukast 10 MG Oral Tablet 2023-07-19 00:00:00Z - Completed atenolol 50 MG Oral Tablet [id number]: 00:00Z - Completed atenolol 50 MG Oral Tablet [id number]: 00:00Z - Completed Patient Care team information Name Category Status Period Participants - - Proposed period not known -
--- OUTSIDE RECORDS SUMMARY | 2024-10-18 16:17 | XMS_ITS | Referral Summary ---
Author Organization [facility] Address [address] [place] [address] Care Team Providers Care Paper Products Printer Name Role Phone Jaye Mccloud MD Primary Care Provider Allergies No known active allergies Medications No known medications Active Problems Problem Noted Date Diagnosed Date Right wrist pain 11/16/2019 Ganglion cyst 11/16/2019 Social History Tobacco Use Types Packs/Day Years Used Date Smoking Tobacco: Some Days Alcohol Use Standard Drinks/Week Comments Yes 0 (1 standard drink = 0.6 oz pur e alcohol) social Personal Safety Answer Date Recorded Getting School Help Needed Not on file 11/19 Comments Unknown Sex and Gender Information Value Date Recorded Sex Assigned at Not on file 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 Gender Identity Not on file Sexual Orientation Not on file Last Filed Vital Signs Vital Sign Reading Time Taken Comments Blood Pressure - - Pulse - - Temperature - - Respiratory Rate - - Oxygen Saturation - - Inhaled Oxygen Concentration - - Weight 110.2 kg (243 lb) 11/16/2019 7:28 AM CDT Height 165.1 cm (5' 5 ) 11/16/2019 7:28 AM CDT Body Mass Index 40.44 11/16/2019 7:28 AM CDT Plan of Treatment Not on file Insurance [employer] [facility] Care Teams Paper Products Printer Relationship Specialty Start Date End Date Jaye Mccloud MD [address] [facility] [address] [place] [address] PCP - General Family Medicine 10/25/19
--- OUTSIDE RECORDS SUMMARY | 2024-10-18 16:17 | XMS_ITS | Clinical Summary ---
Author Organization [facility] Address [address] [facility] [place] [address] Care Team Providers Care Admitting Clerk Name Role Phone Jaye Mccloud MD Primary Care Provider [phone]- [phone] Allergies Active Allergy Reactions Criticality Noted Date Comments Levofloxacin Rash Low 09/15/2017 Medications loratadine (CLARITIN) 10 mg tablet Take 10 mg by mouth 1 time daily as needed for Allergies. Active fluticasone (FLONASE) 50 mcg/spray Mcloud, Suspension Administer 2 Sprays in each nostril 1 time daily as needed for Rhinitis. Active montelukast (SINGULAIR) 10 mg tablet Take 10 mg by mouth 1 time daily as needed. Active multivitamin (DAILY-LATONIA) tablet Take 1 Tablet by mouth daily. Active Fish Oil-[place]-3 Fatty Acids 360-1,200 mg Capsule Take 1 Capsule by mouth daily. Active magnesium oxide 250 mg Tablet Take 250 mg by mouth daily. Active lidocaine-prilo moises (EMLA) 2.5-2.5 % Cream Apply to port site 30-60 min prior to use. 15 Gram 3 8 Active L. RHAMNOSUS GG/INULIN (CULTURELLE PROBIOTICS ORAL) Take by mouth. Activ e turmeric-herbal complex no.278 150 mg Capsule Take 1 Capsule by mouth daily. Active famotidine (PEPCID) 10 mg tablet Take 10 mg by mouth daily. 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 [place] [address] Prem Asher MD from Last 3 Months Family History Medical History Relation Name Comments Heart Disease Father Heart Disease Maternal Grandfather Heart Disease Maternal Grandmother Cancer Mother Pancreatic Heart Disease Paternal Grandfather Breast Cancer Paternal Grandmother Cancer Paternal Uncle MDS Healthy Sister Healthy Son 1 Healthy Son 2 Relation Name Status Comments Father Maternal Grandfather Maternal Grandmother Mother Paternal Grandfather Paternal Grandmother Paternal Uncle Alive Sister Alive Son 1 Alive Son 2 Alive Social History Tobacco Use Types Packs/Day Years Used Date Smoking Tobacco: Some Days Cigarettes Smokeless Tobacco: Never Tobacco Cessation:Ready to Q uit: Not Asked; Counseling Given: Not Answered Comments:2 cigarettes per week Alcohol Use Standard Drinks/Week Comments Yes 0 (1 standard drink = 0.6 oz pur e alcohol) occasional Comments No Sex and Gender Information Value Date Recorded Sex Assigned at Not on file Legal Sex Female 3:26 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 Gender Identity Not on file Sexual Orientation Not on file Last Filed Vital Signs Vital Sign Reading Time Taken Comments Blood Pressure 139/84 10/26/2023 1:12 PM MASSAGE THERAPIST Pulse 73 10/26/2023 1:09 PM MASSAGE THERAPIST Temperature 36.2 C (97.2 F) 10/26/2023 1:09 PM MASSAGE THERAPIST Respiratory Rate 14 10/26/2023 1:09 PM MASSAGE THERAPIST Oxygen Saturation 96% 10/26/2023 1:09 PM MASSAGE THERAPIST Inhaled Oxygen Concentration - - Weight 105.7 kg (233 lb) 10/26/2023 1:09 PM MASSAGE THERAPIST Height 165.1 cm (5' 5 ) 01/21/2022 3:01 PM CDT Body Mass Index 38.77 01/21/2022 3:01 PM CDT Plan of Treatment Upcoming Encounters Date Type Department Care Team (Late st Contact Info) Description 10/26/2024 10:15 AM MASSAGE THERAPIST Office Visit [facility] Oncology and Hematology [facility] [address] [facility] [address] [place] [address] Prem Asher MD [address] [facility] [address] [place] [address] Health Maintenance Due Date Last Done Comments Pre-Diabetes and Diabetes Screening 1967 DTAP/TDAP/TD VACCINES (1 - Tdap) 1986 HEPATITIS B VACCINES (1 of 3 - 19+ 3-dose series) 1986 ZOSTER VACCINE (1 of 2) 1986 CERVICAL CANCER SCREENING 1997 COLORECTAL SCREENING 2012 Colorectal Cancer Screening 2012 FIT-DNA Q 3 years 2012 FIT/FOBT Q 1 year 2012 Flex Sig/CT Colonography Q 5 years 2012 INFLUENZA VACCINE (#1) 2024 06/14/2019 Preventative Visit- Commercial 09/07/2024 BREAST CANCER SCREENING 08/29/2025 08/29/20 24, 08/25/2023, 06/25/2020, Additional history exists Procedures Procedure Name Priority Date/Time Associated Diagnosis Comments MAMMOGRAPHY Routine 08/29/2024 9:04 AM MASSAGE THERAPIST from Last 3 Months Results * HM MAMMOGRAPHY (08/29/2024 9:04 AM MASSAGE THERAPIST) Anatomical Region Laterality Modality Other Prem Asher MD HEALTH MAINTENANCE Final Result from Last 3 Months Insurance [employer] HMO OPEN ACCESS [employer] O OPEN ACCESS Care Teams Admitting Clerk Relationship Specialty Start Date End Date Jaye Mccloud MD PCP - General Family Practice 09/15/17
--- OUTSIDE RECORDS SUMMARY | 2024-10-18 16:17 | XMS_ITS | Clinical Summary ---
Author Organization [facility] Address [address] [place] [address] Care Team Providers Care Land Acquisition Analyst Name Role Phone Jyae Mccloud MD Primary Care Provider Allergies No known active allergies Medications No known medications Active Problems Problem Noted Date Diagnosed Date Right wrist pain 11/16/2019 Ganglion cyst 11/16/2019 Surgical History Surgery Date Site/Laterality Comments BREAST LUMPECTOMY CARPAL TUNNEL RELEASE HYSTERECTOMY Medical History Medical History Date Comments Cancer (CMS/HCC) (HCC) Hypertension Family History Medical History Relation Name Comments Gout Father Heart disease Father Arthritis Mother Cancer Mother Relation Name Status Comments Father Mother Social History Tobacco Use Types Packs/Day Years Used Date Smoking Tobacco: Some Days Alcohol Use Standard Drinks/Week Comments Yes 0 (1 standard drink = 0.6 oz pur e alcohol) social Personal Safety Answer Date Recorded Getting School Help Needed Not on file 11/19 Comments Unknown Sex and Gender Information Value Date Recorded Sex Assigned at Not on file Legal Sex Female 1:34 PM RETURN CLERK Gender Identity Not on file Sexual Orientation Not on file Obstetrics History Last Filed Vital Signs Vital Sign Reading [...] Plan of Treatment Not on file Insurance [employer] [facility] Care Teams Land Acquisition Analyst Relationship Specialty Start Date End Date Jaye Mccloud MD [address] [facility] [address] [place], [place] [id number] PCP - General Family Medicine 10/25/19
[2024-10-18 16:37] LABS: Alanine Aminotransferase 28 U/L (6-35); Albumin Level 4.3 g/dL (3.5-5.1); Alkaline Phosphatase 74 U/L (38-126); Anion Gap 8 mmol/L (4-12); Aspartate Amino Transferase 33 U/L (14-36); Bilirubin,Total 0.6 mg/dL (0.2-1.3); Blood Urea Nitrogen 21 mg/dL (7-17); Calcium 9.5 mg/dL (8.4-10.2); Carbon Dioxide 29 mmol/L (22-30); Chloride 101 mmol/L (98-107); Estimated Glomerular Filt Rate > 60; Glucose 112 mg/dL (65-110); Potassium 3.9 mmol/L (3.4-5.0); Sodium 138 mmol/L (137-145)
[2024-10-20 03:59] LABS: CA 15-3 9 U/mL (<32)
== END 2024-10-18 15:45 | disposition home or self-care (01) ==
LOC: ANHLAB 15:46
PROVIDERS: PCP Family Medicine; Visit Provider Internal Medicine Hematology & Oncology
DX: C50.411 Malignant neoplasm of upper-outer quadrant of right female breast (principal); Z17.0 Estrogen receptor positive status [ER+]
CPT/HCPCS: 36415; 80053; 85025; 86300

== ENCOUNTER 2024-10-27 14:31 | Outpatient (CLI) | payer OTHER, SELFPAY ==
--- NOTE | ~2024-10-27 | XR_ITS ---
EXAMINATION: XR shoulder RT min 2V DATE: 10/27/2024 15:00 INDICATION: Right shoulder pain with limited range of motion TECHNIQUE: AP internally and externally rotated, AP oblique externally rotated and axillary views of the right shoulder were obtained. COMPARISON: None FINDINGS: Normal alignment. No fracture.Severe right glenohumeral osteoarthritis with essentially ovrz-le-[id number] apposition and large marginal osteophyte along the inferior humeral head. Moderate acromioclavicular osteoarthritis. Surgical clips at the right axilla. Visualized portions of the lungs are clear. Soft tissues are unremarkable. IMPRESSION: Moderate right acromioclavicular and severe glenohumeral osteoarthritis. Reviewed, dictated and finalized at location A. ATING ROOM RN
== END 2024-10-27 14:32 | disposition home or self-care (01) ==
LOC: MICIMG 14:32
PROVIDERS: PCP Family Medicine; Visit Provider Physician Assistant
DX: M19.011 Primary osteoarthritis, right shoulder (principal)
CPT/HCPCS: 73030

== ENCOUNTER 2025-09-01 10:27 | Outpatient (CLI) | payer OTHER, SELFPAY ==
--- NOTE | ~2025-09-01 | MM_ITS ---
EXAMINATION: MM screening [facility] BI w [facility] HISTORY: Screening TECHNIQUE: Craniocaudal and mediolateral oblique 3-D tomosynthesis images were obtained and synthetic 2-D images were generated. CAD analysis was submitted and interpreted. COMPARISON: Comparison to multiple prior studies sequentially, with oldest reviewed study dated 06/23/2019. BREAST PARENCHYMAL COMPOSITION: Not dense: There are scattered areas of fibroglandular density. FINDINGS: No significant change to architectural distortion upper outer quadrant of the right breast, compatible with prior lumpectomy. There is no evidence of suspicious mass, calcification, or architectural distortion to suggest malignancy in either breast. There has been no suspicious interval change. IMPRESSION: 1. No mammographic evidence of malignancy. 2. Recommend routine screening mammography in one year. BI-RADS Category 2: Benign finding(s). Reviewed, dictated and finalized at location O. ETCH OPERATOR
--- OUTSIDE RECORDS SUMMARY | 2025-09-01 10:32 | XMS_ITS | Clinical Summary ---
Author Organization [facility] Address [address] [place] [address] Care Team Providers Care Per Diem Nurse Name Role Phone Kirill Lozada MD Primary Care Provider Allergies Active Allergy Reactions Criticality Noted Date Comments Levofloxacin Rash Low 09/15/2017 Medications loratadine (CLARITIN) 10 mg tablet Take 10 mg by mouth 1 time daily as needed for Allergies. Active fluticasone (FLONASE) 50 mcg/spray [place], Suspension Administer 2 Sprays in each nostril 1 time daily as needed for Rhinitis. Active montelukast (SINGULAIR) 10 mg tablet Take 10 mg by mouth 1 time daily as needed. Active multivitamin (DAILY-LATONIA) tablet Take 1 Tablet by mouth daily. Active Fish Oil-Reynolds-3 Fatty Acids 360-1,200 mg Capsule Take 1 [...] PO Q 8 H 0 9 Active baclofen (LIORESAL) 5 mg tablet Take 5 mg by mouth daily. Active meloxicam (MOBIC) 7.5 mg tablet Take 7.5 mg by mouth daily. Active Active Problems Problem Noted Date Diagnosed Date Normocytic anemia 07/26/2019 Family history of pancreatic cancer 12/08/2017 Genetic testing 12/08/2017 Thrush, oral 12/03/2017 Neuropathy due to chemotherapeutic drug 12/04/19 Bone pain 12/03/2017 Family history of malignant neoplasm of breast in relative diagnosed when younger than 45 years of age 0312/03/2017 Morbid obesity with body mass index of 40.0-49.9 09/25/2017 Malignant neoplasm of upper- outer quadrant of right breast in female, estrogen receptor positive 09/15/2017 Tobacco use 09/15/2017 Encounters Date Type Department Care Team Description 08/29/2025 External Device Data ST[facility] ABSTRACTION Provider, Abstract 07/25/2025 External Device Data [facility] ABSTRACTION Provider, Abstract 07/11/2025 External Device Data [facility] ABSTRACTION Provider, Abstract 06/28/2025 External Device Data [facility] ABSTRACTION Provider, Abstract 06/13/2025 External Device Data ST[facility] ABSTRACTION Provider, Abstract from Last 3 Months Family History Medical [...] Tobacco: Some Days Cigarettes Smokeless Tobacco: Never Comments:2 cigarettes per we ek Alcohol Use Standard Drinks/Week Comments Yes 0 (1 standard drink = 0.6 oz pur e alcohol) occasional Comments No Sex and Gender Information Value Date Recorded Sex Assigned at Not on file Legal Sex Female 3:26 PM SEBD TEACHER Gender Identity Not on file Sexual Orientation Not on file Last Filed Vital Signs Vital Sign Reading Time Taken Comments Blood Pressure 127/84 11/09/2024 10:24 AM SEBD TEACHER Pulse 100 11/09/2024 10:21 AM SEBD TEACHER Temperature 37.1 C (98.8 F) 11/09/2024 10:21 AM SEBD TEACHER Respiratory Rate 14 11/09/2024 10:2 1 AM SEBD TEACHER Oxygen Saturation 96% 11/09/2024 10: 21 AM SEBD TEACHER Inhaled Oxygen Concentration - - Weight 106.9 kg (235 lb 9.6 oz) 025 10:21 AM SEBD TEACHER Height 165.1 cm (5' 5) 01/21/2022 3:01 PM CDT Body Mass Index 39.21 01/21/2022 3:01 PM CDT Plan of Treatment Upcoming Encounters Date Type Department Care Team (Late st Contact Info) Description 11/09/2025 10:00 AM SEBD TEACHER Office Visit [facility] Oncology and Hematology [facility] [address] [facility] [address] [place] [address] Prem Asher MD [address] [facility] [address] [place] [address] Health Maintenance Due Date Last Done Comments Pre-Diabetes and Diabetes Screening 1967 DTAP/TDAP/TD VACCINES (1 - Tdap) 1986 HEPATITIS B VACCINES (1 of 3 - 19+ 3-dose series) 1986 ZOSTER VACCINE (1 of 2) 1986 HPV/Cotest (21-29) 1988 CERVICAL CANCER SCREENING 1997 HPV/Cotest (30-65) 1997 PAP SMEAR 1997 COLORECTAL SCREENING 2012 Colorectal Cancer Screening 2012 FIT-DNA Q 3 years 2012 FIT/FOBT Q 1 year 2012 Flex Sig/CT Colonography Q 5 years 2012 INFLUENZA VACCINE (#1) 2025 06/14/2019 BREAST CANCER SCREENING 08/29/2025 08/29/20 24, 08/25/2023, 06/25/2020, Additional history exists Procedures Procedure Name Priority Date/Time Associated Diagnosis Comments HM MAMMOGRAPHY Routine 08/29/2024 9:04 AM SEBD TEACHER from Last 3 Months or Most Recently Relevant to Health Maintenance Results * HM MAMMOGRAPHY (08/29/2024 9:04 AM SEBD TEACHER) Prem Asher MD HEALTH MAINTENANCE Final Result from Last 3 Months or Most Recently Relevant to Health Maintenance Insurance B[employer]EF[employer]ANS B[employer]EFIT PLANS Care Teams Per Diem Nurse Relationship Specialty Start Date End Date Kirill Lozada MD [address] [id number] PCP - General Family Practice 11/09/24
--- OUTSIDE RECORDS SUMMARY | 2025-09-01 10:32 | XMS_ITS | Clinical Summary ---
Author Organization [facility] [place] [facility] Address [address] [place] [address] Care Team Providers Care Pullman Conductor Name Role Phone Kirill Lozada MD Primary Care Provider Allergies Active Allergy Reactions Criticality Noted Date Comments Anastrozole Joint pain Low 02/10/2025 Levofloxacin Hives Medium 02/10/2025 Medications atenoloL (TENORMIN) 50 mg tabletIndicatio ns:hypertension Take 1 tablet (50 mg total) by mouth wastewater technician before breakfast Active baclofen (LIORESAL) 5 mg tabletIndicatio ns:Muscle Spasticity of Spinal Origin Take 1 tablet (5 mg total) by mouth 3 (three) times a day as needed for muscle spasms for muscle spasms Active famotidine (PEPCID) 10 mg tabletIndicatio ns:gastroesopha geal reflux disease Take 1 tablet (10 mg total) by mouth 2 (two) times a day as needed for indigestion or heartburn Active fluticasone propionate (FLONASE) 50 mcg/actuation nasal sprayIndication s:Allergic Rhinitis Administer 2 sprays into each nostril daily as needed for allergies Active loratadine (CLARITIN) 10 mg tabletIndicatio ns:Allergic Rhinitis Take 1 tablet (10 mg total) by mouth every evening Active meloxicam (MOBIC) 7.5 mg tabletIndicatio ns:Osteoarthrit is Take 1 tablet (7.5 mg total) by mouth every evening 5 Active montelukast (SINGULAIR) 10 mg tabletIndicatio ns:Maintenance Therapy for Asthma Take 1 tablet (10 mg total) by mouth nightly Active multivitamin tabletIndicatio ns:Vitamin Deficiency Prevention Take 1 tablet by mouth wastewater technician before breakfast Active omega-3 fatty acids-fish oil 360-1,200 mg capsule Take 1 capsule by mouth wastewater technician before breakfast Active turmeric root extract 500 mg capsuleIndicati ons:Supplement Take 500 mg by mouth wastewater technician before breakfast Active acidophilus-pec tin, citrus 100 million cell-10 mg capsuleIndicati ons:Supplement Take 1 capsule by mouth wastewater technician before breakfast Active ferrous sulfate ER 324 mg (65 mg iron) EC tabletIndicatio ns:Supplement Take 65 mg by mouth daily with breakfast Active naproxen sodium 220 mg capsuleIndicati ons:Pain Take 220 mg by mouth every 12 (twelve) hours as needed (Pain) Active pseudoephedrine -ibuprofen 30-200 mg capsuleIndicati ons:Nasal Congestion Take 1 capsule by mouth daily as needed (allergies / congestion) Active cholecalciferol (VITAMIN D-3) 50,000 unit capsule Take one capsule a week for 8 weeks. 8 capsule 5 Active oxyCODONE (ROXICODONE) 5 mg immediate release tabletIndicatio ns:Pain Take 1 tablet (5 mg total) by mouth every 4 (four) hours as needed for pain 20 tablet 5 Active acetaminophen (TYLENOL) 500 mg tablet Take 2 tablets (1,000 mg total) by mouth every 6 (six) hours 100 tablet 1 5 Active docusate sodium (COLACE) 100 mg capsuleIndicati ons:constipatio n Take 1 capsule (100 mg total) by mouth 2 (two) times a day For constipation. Hold if having loose stools or diarrhea. 30 capsule 1 5 Active aspirin 81 mg enteric coated tablet Take 1 tablet (81 mg total) by mouth 2 (two) times a day for 28 doses 28 tablet 5 Active celecoxib (CeleBREX) 200 mg capsule Take 1 capsule (200 mg total) by mouth 2 (two) times a day with lunch and dinner Take with or with your meal. Alternate Celebrex with scheduled Tylenol. For example: After breakfast, 8 am Tylenol Lunch 11am Celebrex Snack 2 pm Tylenol Dinner, 5 pm Celebrex Before bed 9 pm Tylenol 60 capsule Active Active Problems Problem Noted Date Diagnosed Date Arthritis of left glenohumeral joint 08/21/2025 Chronic left shoulder pain 08/21/2025 Glenohumeral arthritis, right 05/30/2025 Osteoarthritis of glenohumeral joint, right 08/0 05/2025 Chronic right shoulder pain 04/15/2025 Right wrist pain 11/16/2019 Ganglion cyst 11/16/2019 Encounters Date Type Department Care Team Description 08/21/2025 8:00 AM MORTGAGE LOAN PROCESSOR Office Visit [facility] Medicine Orthopaedic Surgery [address] [facility] 12th [place] [address] [place] [address] Priyanka Goddard MD Status post total shoulder arthroplasty, right (Primary Dx); Glenohumeral arthritis, left 08/21/2025 7:45 AM MORTGAGE LOAN PROCESSOR - 08/21/2025 11:59 PM MORTGAGE LOAN PROCESSOR Hospital Encounter [facility] [address] [place] [id number] Status post total shoulder arthroplasty, right Discharge Disposition: Discharge to home or self care 07/10/2025 3:15 PM MORTGAGE LOAN PROCESSOR Office Visit [facility] Orthopaedic Surgery [address] [place] [address] [facility] 12th [place] [address] [place] [address] Priyanka Goddard MD Status post total shoulder arthroplasty, right (Primary Dx) 07/10/2025 3:00 PM MORTGAGE LOAN PROCESSOR - 07/10/2025 11:59 PM MORTGAGE LOAN PROCESSOR Hospital Encounter [facility] [address] [place] [address] Status post total shoulder arthroplasty, right Discharge Disposition: Discharge to home or self care 06/14/2025 10:09 AM CDT - 06/14/2025 11:59 PM CDT Hospital Encounter [facility] [address] [place] [address] Jose Carlos Quiroz MD Glenohumeral arthritis, left Discharge Disposition: Discharge to home or self care 06/14/2025 9:15 AM CDT Office Visit [facility] Medicine Orthopaedic Surgery [address] [place] [address] 2nd [address] [place] [address] Priaynka Goddard MD Status post total shoulder arthroplasty, right (Primary Dx); Glenohumeral arthritis, right 06/14/2025 9:12 AM CDT - 06/14/2025 11:59 PM CDT Hospital Encounter [facility] [address] [place] [address] Glenohumeral arthritis, right Discharge Disposition: Discharge to home or self care from Last 3 Months Surgical History Surgery Date Site/Laterality Comments BREAST LUMPECTOMY CARPAL TUNNEL RELEASE HYSTERECTOMY FLUORO GUIDED INJECTION SHOULDER LEFT 02/10/2025 Lef t FLUORO GUIDED INJECTION SHOULDER RIGHT 02/10/2025 Ri ght BLADDER SUSPENSION 09/07/2017 - 09/06/2018 FLUORO GUIDED INJECTION SHOULDER LEFT 06/14/2025 Lef t Medical History Medical History Date Comments Cancer (HCC) Hypertension Asthma GERD (gastroesophageal reflux disease) VINCENT (obstructive sleep apnea) OA (osteoarthritis) Family History Medical History Relation Name Comments Gout Father Heart disease Father Arthritis Mother Cancer Mother Anesthesia problems Neg Hx Relation Name Status Comments Father Mother Social History Tobacco Use Types Packs/Day Years Used Date Smoking Tobacco: Former Cigarettes 0.1 30 0 12/1994 - 12/2024 Smokeless Tobacco: Never Tobacco Cessation:Counseling Given: Not Answered Alcohol Use Standard Drinks/Week Comments Yes 6 (1 standard drink = 0.6 oz pur e alcohol) social AUDIT-C Answer Date Recorded Q1: How often do you have a drink containing alc ohol? 2-3 times a week 05/30/2025 Q2: How many drinks containi ng alcohol do you have on a typical day when you are drinking? 3 or 4 05/30/2025 Q3: How often do you have si x or more drinks on one occasion? Never 05/30/2025 Personal Safety Answer Date Recorded Have you ever been in or are you currently in a harmful physical or emotional relationship or is someone making you feel afraid or unsafe? Denies 06/14/2025 Comments No Sex and Gender Information Value Date Recorded Sex Assigned at Not on file Legal Sex Female 1:34 PM MORTGAGE LOAN PROCESSOR Gender Identity Not on file Sexual Orientation Not on file Last Filed Vital Signs Vital Sign Reading Time Taken Comments Blood Pressure 154/97 06/14/2025 11:50 AM CDT Pulse 71 06/14/2025 11:50 AM CDT Temperature 36.4 C (97.5 F) 05/30/2025 12:00 PM CDT Respiratory Rate 16 06/14/2025 11:50 AM CDT Oxygen Saturation 98% 06/14/2025 11:50 AM CDT Inhaled Oxygen Concentration - - Weight 105.2 kg (232 lb) 06/14/2025 11:03 AM CDT Height 165.1 cm (5' 5) 05/15/2025 7:35 AM CDT Body Mass Index 38.61 05/15/2025 7:35 AM CDT Plan of Treatment Upcoming Encounters Date Type Department Care Team (Latest Contact Info) Description 10/03/2025 10:30 AM MORTGAGE LOAN PROCESSOR Hospital Encounter [facility] [address] [place] [address] Priyanka Goddard MD [address] [facility] [place] [address] 10/03/2025 10:30 AM MORTGAGE LOAN PROCESSOR - 10/03/2025 12:45 PM MORTGAGE LOAN PROCESSOR Surgery [facility] [address] [place] [address] Priyanka Goddard MD [address] [facility] [place] [address] Left Total Shoulder Arthroplasty Scheduled Procedures Name Priority Associated Diagnoses Date/Ti me ARTHROPLASTY TOTAL SHOULDER Arthritis of left glenohumeral joint Chronic left shoulder pain 10/03/2025 10:30 AM MORTGAGE LOAN PROCESSOR Health Maintenance Due Date Last Done Comments Breast Cancer Screening-Mammogram 1967 Colon Cancer Screening-Colonoscopy 1967 Depression Screening 1967 Hepatitis C Screening 1967 DTaP/Tdap/Td Vaccine (1 - Tdap) 1978 Hepatitis B Screening 1985 Regular Well Visit/Exam 18-64 1985 Zoster Vaccine (1 of 2) 2017 Pneumococcal vaccine <65 (2 of 2 - PCV) 08/20/2018 1 10/21/2016 Covid-19 Vaccine ( season) 2025, 11/12/2020 Influenza Vaccine (#1) 2025 Medical Devices Implanted Type Area Mental Health Practitioner Device Identifier Shelf Expiration Date Model / Serial / Lot [employer] Simplex P Full Dose Radiopaque Preblend Cement Bone Tobramycin 6197-9-010 - [id number] Implanted:Qty: 1 on 05/30/2025 by Priyanka Goddard MD at [facility] Right: Shoulder [employer] 03/06/2026 6197-9-010 / / [id number] [employer] Component Glenoid Pegged Inhance 26.5mm Medium [id number] - [id number] Implanted:Qty: 1 on 05/30/2025 by Priyanka Goddard MD at [facility] Right: Shoulder [employer] [id number] 02/04/2029 [id number] / / [id number] [employer] Adapter Shoulder Anatomic Offset Taper Inhance [id number] - [id number] Implanted:Qty: 1 on 05/30/2025 by Priyanka Goddard MD at [facility] Right: Shoulder [employer] [id number] 01/04/2030 [id number] / / [id number] [employer] Head Resurfacing Shoulder Inhance 32mm Small [id number] - [id number] Implanted:Qty: 1 on 05/30/2025 by Priyanka Goddard MD at [facility] Right: Shoulder [employer] [id number] 02/04/2029 [id number] / / [id number] [employer] Head Humeral Shoulder Inhance 16.5x42mm [employer] [id number] - [id number] Implanted:Qty: 1 on 05/30/2025 by Priyanka Goddard MD at [facility] Right: Shoulder [employer] [id number] 08/06/2026 [id number] / / [id number] Procedures Procedure Name Priority Date/Time Associated Diagnosis Comments XR SHOULDER RIGHT 2 OR MORE VIEWS Schedule Routine, Read Routine (OP Routine) 08/21/2025 8:15 AM MORTGAGE LOAN PROCESSOR Status post total shoulder arthroplasty, right XR SHOULDER RIGHT 2 OR MORE VIEWS Schedule Routine, Read Routine (OP Routine) 07/10/2025 3:20 PM MORTGAGE LOAN PROCESSOR Status post total shoulder arthroplasty, right FLUORO GUIDED INJECTION SHOULDER LEFT Schedule Routine, Read Routine (OP Routine) 06/14/2025 11:47 AM CDT Glenohumeral arthritis, left XR SHOULDER RIGHT 2 OR MORE VIEWS Schedule Routine, Read Routine (OP Routine) 06/14/2025 9:17 AM CDT Glenohumeral arthritis, right from Last 3 Months Results * XR Shoulder Right 2 or More Views (08/21/2025 8:15 AM MORTGAGE LOAN PROCESSOR) Anatomical Region Laterality Modality Upper Extremities, Shoulder Right Comp uted Radiography 08/21/2025 8:39 AM MORTGAGE LOAN PROCESSOR Impressions 08/21/2025 8:39 AM MORTGAGE LOAN PROCESSOR Intact right total shoulder arthroplasty in expected position. Electronically signed by: Hussein Dia MD Narrative 08/21/2025 8:39 AM MORTGAGE LOAN PROCESSOR EXAMINATION: XR SHOULDER RIGHT 2 OR MORE VIEWS HISTORY: Postoperative, right shoulder FINDINGS: 4 views the right shoulder submitted for interpretation, with comparison radiographs dated 07/10/2025. Intact right total shoulder arthroplasty in expected position, without evidence of periprosthetic fracture or lucency. There is mild to moderate a acromioclavicular osteoarthritis. Surgical clips are seen in the right axilla. Procedure Note Hussein Dia MD - 08/21/2025 EXAMINATION: XR SHOULDER RIGHT 2 OR MORE VIEWS HISTORY: Postoperative, right shoulder FINDINGS: 4 views the right shoulder submitted for interpretation, with comparison radiographs dated 07/10/2025. Intact right total shoulder arthroplasty in expected position, without evidence of periprosthetic fracture or lucency. There is mild to moderate a acromioclavicular osteoarthritis. Surgical clips are seen in the right axilla. IMPRESSION: Intact right total shoulder arthroplasty in expected position. Electronically signed by: Hussein Dia MD Priyanka Goddard MD IMG XR PROCEDURES Fin al Result * XR Shoulder Right 2 or More Views (07/10/2025 3:20 PM MORTGAGE LOAN PROCESSOR) Anatomical Region Laterality Modality Upper Extremities, Shoulder Right Comp uted Radiography 07/10/2025 4:05 PM MORTGAGE LOAN PROCESSOR Impressions 07/10/2025 4:05 PM MORTGAGE LOAN PROCESSOR 1. Unchanged right total shoulder arthroplasty in near-anatomic alignment. Electronically signed by: Inocencio Aldrich MD Narrative 07/10/2025 4:05 PM MORTGAGE LOAN PROCESSOR EXAMINATION: XR SHOULDER RIGHT 2 OR MORE VIEWS HISTORY: Right shoulder arthroplasty COMPARISON: 06/14/2025 FINDINGS: Unchanged right total shoulder arthroplasty in near-anatomic alignment. No periprosthetic fracture or lucency. There is moderate right acromioclavicular osteoarthritis. Surgical clips are present within the right hemithorax Procedure Note Inocencio Aldrich MD - 07/10/2025 EXAMINATION: XR SHOULDER RIGHT 2 OR MORE VIEWS HISTORY: Right shoulder arthroplasty COMPARISON: 06/14/2025 FINDINGS: Unchanged right total shoulder arthroplasty in near-anatomic alignment. No periprosthetic fracture or lucency. There is moderate right acromioclavicular osteoarthritis. Surgical clips are present within the right hemithorax IMPRESSION: 1. Unchanged right total shoulder arthroplasty in near-anatomic alignment. Electronically signed by: Inocencio Aldrich MD Priyanka MARCG XR PROCEDURES Fin al Result * FL Fluoro Guided Injection Shoulder Left (GLENOHUMERAL JOINT) (06/14/2025 11:47 AM CDT) Narrative [facility] - 06/14/2025 11:47 AM CDT The images from this study are not interpreted by Radiology. Please refer to the physician's procedure / OR operative note. Priyanka Goddard MD IMG FLUOROSCOPY PROCE DURES Final Result [facility] * XR Shoulder Right 2 or More Views (06/14/2025 9:17 AM CDT) Anatomical Region Laterality Modality Upper Extremities, Shoulder Right Comp uted Radiography 06/14/2025 10:0 9 AM CDT Impressions 06/14/2025 10:09 AM CDT Right anatomic total shoulder arthroplasty in unchanged, expected position. Electronically signed by: Naveed Ortiz M.D. Narrative 06/14/2025 10:09 AM CDT EXAMINATION: XR SHOULDER RIGHT 2 OR MORE VIEWS HISTORY: Right shoulder arthroplasty follow-up COMPARISON: 05/30/2025 FINDINGS: Right anatomic total shoulder arthroplasty is in unchanged, expected position. No periprosthetic fracture. Soft tissue gas has largely resolved. Moderate right acromioclavicular osteoarthritis. Surgical clips in the right axilla/chest. Procedure Note Naveed Ortiz MD - 06/14/2025 EXAMINATION: XR SHOULDER RIGHT 2 OR MORE VIEWS HISTORY: Right shoulder arthroplasty follow-up COMPARISON: 05/30/2025 FINDINGS: Right anatomic total shoulder arthroplasty is in unchanged, expected position. No periprosthetic fracture. Soft tissue gas has largely resolved. Moderate right acromioclavicular osteoarthritis. Surgical clips in the right axilla/chest. IMPRESSION: Right anatomic total shoulder arthroplasty in unchanged, expected position. Electronically signed by: Naveed Ortiz M.D. Priyanka Goddard MD IMG XR PROCEDURES Fin al Result from Last 3 Months Insurance [employer] [facility] Advance Directives For more information, please contact: [phone] * Full Code (Latest Code Status on File) Date Activated Date Inactivated Comments 05/30/2025 11:54 AM 05/30/2025 6:54 PM Care Teams Pullman Conductor Relationship Specialty Start Date End Date Kirill Lozada MD [address] [facility] [address] [place] [address] PCP - General Family Medicine 05/17/25
== END 2025-09-01 10:28 | disposition home or self-care (01) ==
LOC: ANHFOHIMG 10:29
PROVIDERS: PCP Family Medicine; Visit Provider Internal Medicine Hematology & Oncology
DX: Z12.31 Encounter for screening mammogram for malignant neoplasm of breast (principal)
CPT/HCPCS: 77063; 77067